=== PATIENT | male | born 1940 | race Caucasian/White ===

== ENCOUNTER → 2022-09-23 | Outpatient (CLI) | payer MEDICARE, BC ==
--- NOTE | 2022-09-23 12:56 | CT ---
EXAMINATION TYPE: CT abdomen pelvis wo con DATE OF EXAM: 09/23/2022 HISTORY: Abdominal pain, renal stones CT DLP: 985.90 mGycm. Automated Exposure Control for Dose Reduction was Utilized. TECHNIQUE: CT scan of the abdomen and pelvis is performed without oral or IV contrast. COMPARISON: NONE FINDINGS: Within the limitations of a non-contrast study, the following observations are made. LUNG BASES: No significant abnormality is appreciated. LIVER/GB: Dependent density consistent with sludge and/or small stones in gallbladder. No surrounding fluid or fat stranding PANCREAS: Mild to moderate atrophy in the pancreatic head. SPLEEN: No significant abnormality is seen. ADRENALS: No significant abnormality is seen. KIDNEYS: There is left-sided percutaneous nephrostomy. This terminates in the region of lower pole ca lyx. Persistent fgeljyyk-dl-nlmqko left-sided hydronephrosis and hydroureter up to the pelvic level. No left-sided nephrolithiasis. Right kidney shows exophytic 3.4 cm thin-walled cyst upper pole level right kidney. There is moderate right-sided hydronephrosis and more mild to moderate right-sided hydr oureter less prominent than left kidney up to the level of the pelvis. No intraluminal calculus in th e bladder. No significant distal hydroureter near the bladder. BOWEL: Surgical sutures in the rectum are present. There is marked abnormal soft tissue in the ancelmo cral space with additional air fluid level axial image 147 near the the site of the sutures. Divertic ulosis in the sigmoid colon proximal to this is identified. Surgical sutures in the proximal sigmoid colon axial image 123 are noted. 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 There is no suspicious small or large bowel dilatation. GENITAL ORGANS: No gross abnormality seen. LYMPH NODES: No greater than 1cm abdominal or pelvic lymph nodes are appreciated. OSSEOUS STRUCTURES: Grade 1 retrolisthesis L5-L3 and L3 on L4. Moderate disc space narrowing right L3 -L4 level. Surgical change to left femur is partially imaged. Slight scoliotic curvature with multile isaias spurring in the thoracolumbar spine. OTHER: Ccpe-ud-yeiudujj calcified plaque of the aorta extends into branch vessels. Mild soft tissue a nasarca. IMPRESSION: No renal stones identified bilaterally. Mild to moderate right-sided hydronephrosis and m mxduyre-if-rumpyf left-sided hydronephrosis are identified. There is left-sided percutaneous nephrost douglas tube noted. Please assess for adequate functioning. There is nonvisualization of distal ureters d ue to extensive treatment change in the pelvis particularly the presacral region where there is ill-d efined soft tissue and fluid near the site of the sutures in the rectum presumed occluding the distal ureters bilaterally. 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 Active neoplasm cannot be exclu ded without prior comparisons. Presence of air-fluid levels in thin walled fluid collections at this level could reflect posttreatment seromas but other etiologies such as small abscess cannot be exclud ed. Correlate clinically.
== END | disposition home or self-care (01) ==
LOC: RADCTMAIN 12:01
PROVIDERS: ATTEND Surgery
DX: N13.2 Hydronephrosis with renal and ureteral calculous obstruction (principal)
CPT/HCPCS: 74176

== ENCOUNTER 2022-10-17 11:41 | Inpatient (IN) | payer MEDICARE, BC ==
[2022-10-17] MEDS ORDERED: SODIUM CHLORIDE 0.9% 1,000 ML IV ONE ×2 (11:59→13:10)
[2022-10-17] MEDS ORDERED: SODIUM CHLORIDE 0.9% 500 ML 500 ML IV STA (12:00)
[2022-10-17] MEDS ORDERED: SODIUM CHLORIDE 0.9% 1,000 ML IV STA (12:00)
--- NOTE | 2022-10-17 12:16 | ED ---
General Adult HPI - General Chief complaint: Recheck/Abnormal Lab/Rx Stated complaint: Abd Pain Time Seen by Provider: 10/17/22 11:59 Source: patient, EMS, RN notes reviewed, old records reviewed Mode of arrival: EMS Limitations: altered mental status - History of Present Illness Initial comments: 81-year-old male presenting for evaluation of decreased urine output and abdominal pain. History is somewhat limited. Patient has had, acute medical history in the recent months including percutaneous nephrostomy tube ileostomy and multiple outside hospital admissions. History is obtained from the patient, paramedics, and the son who does have a limited understanding of his recent medical history. No reported fever. There is been very poor intake and minimal urine output from the percutaneous nephrostomy tube on the left. - Related Data Allergies Allergy/AdvReac Type Severity Reaction Status Date / Time No Known Allergies Allergy Verified 10/17/22 12:01 Review of Systems ROS Statement: Those systems with pertinent positive or pertinent negative responses have been documented in the HPI. ROS Other: All systems not noted in ROS Statement are negative. Past Medical History Additional Past Medical History / Comment(s): Heart murmur History of Any Multi-Drug Resistant Organisms: Unobtainable Past Surgical History: Unable to Obtain Past Psychological History: Unable to Obtain Smoking Status: Former smoker Past Alcohol Use History: Rare Past Drug Use History: Marijuana General Exam Limitations: no limitations General appearance: lethargic Head exam: Present: atraumatic, normocephalic Eye exam: Present: normal appearance, PERRL ENT exam: Present: mucous membranes dry Respiratory exam: Present: rhonchi. Absent: respiratory distress Cardiovascular Exam: Present: tachycardia, irregular rhythm GI/Abdominal exam: Present: soft, tenderness, other (Percutaneous left-sided nephrostomy tube, ileostomy). Absent: distended Extremities exam: Absent: normal capillary refill Neurological exam: Present: alert Skin exam: Present: pallor Course Vital Signs 10/17/22 10/17/22 11:42 13:33 Temperature 98.1 F Pulse Rate 104 H 113 H Respiratory 20 18 Rate Blood Pressure 73/51 91/43 O2 Sat by Pulse 96 97 Oximetry Procedures - Sepsis Sepsis Focused Exam #1 Sepsis Focused Exam Date: 10/17/22 Sepsis Focused Exam Time: 14:38 Sepsis Focused Exam Complete: Yes Vital Signs & RN Notes Reviewed: Yes Capillary Refill: < 2 Seconds: Fingers Peripheral Pulses: Weak: Radial (R), Radial (L) Skin Color: Pallor Respiratory Exam: normal lung sounds Cardiovascular Exam: tachycardia, irregular rhythm Medical Decision Making - Medical Decision Making Was pt. sent in by a medical professional or institution (NANO Avila, SLOTS MANAGER, urgent care, hospital, or intermediate...) When possible be specific @ -No Did you speak to anyone other than the patient for history (EMS, parent, family, police, friend...)? What history was obtained from this source @ -Paramedics, and the patient's son Did you review nursing and triage notes (agree or disagree)? Why? @ -I reviewed and agree with nursing and triage notes Were old charts reviewed (outside hosp., previous admission, EMS record, old EKG, old radiological studies, urgent care reports/EKG's, intermediate records)? Report findings @ -No old charts were reviewed Differential Diagnosis (chest pain, altered mental status, abdominal pain women, abdominal pain men, vaginal bleeding, weakness, fever, dyspnea, syncope, headache, dizziness, GI bleed, back pain, seizure, CVA, palpatations, mental health, musculoskeletal)? @ Differential Weakness: Hypoglycemia, shock, sepsis, hyponatremia, anemia, infection, NH, ETOH, adverse medicine reaction, overdose, stroke, this is not meant to be an all-inclusive list. EKG interpreted by me (3pts min.). @ -[Atrial fibrillation with RVR rate of 129, QRS duration 103, QTC 381 frequent PVC X-rays interpreted by me (1pt min.). @ -None done CT interpreted by me (1pt min.). @ -None done U/S interpreted by me (1pt. min.). @ -None done What testing was considered but not performed or refused? (CT, X-rays, U/S, labs )? Why? @ -None What meds were considered but not given or refused? Why? @ -None Did you discuss the management of the patient with other professionals (professionals i.e. NANO Avila, SLOTS MANAGER, lab, RT, psych nurse, director social service, roving can tender, teacher, ecological technical officer, ed case manager)? Give summary @ -Dr. Cevallos, Dr. Cohen Was smoking cessation discussed for >3mins.? @ -No Was critical care preformed (if so, how long)? @ -[yes , 35 min Were there social determinants of health that impacted care today? How? (Homelessness, low income, unemployed, alcoholism, drug addiction, transportation, low edu. Level, literacy, decrease access to med. care, senior living, rehab)? @ -No Was there de-escalation of care discussed even if they declined (Discuss DNR or withdrawal of care, Hospice)? DNR status @ -[DO NOT RESUSCITATE What co-morbidities impacted this encounter? (DM, HTN, Smoking, COPD, CAD, Cancer, CVA, ARF, Chemo, Hep., AIDS, mental health diagnosis, sleep apnea, morbid obesity)? @ -None Was patient admitted / discharged? Hospital course, mention meds given and route, prescriptions, significant lab abnormalities, going to OR and other pertinent info. @ -[81-year-old male presenting for evaluation of decreased urine output, poor intake and abdominal pain. Patient is pale, hypotensive upon arrival. He is in A. fib with RVR. Initial blood pressures in the 60s. He has a left-sided percutaneous nephrostomy tube without urine. He has some minimal generalized abdominal tenderness. Workup is initiated. Patient has significant lab abnormalities including leukocytosis, elevated BUN/creatinine without baseline for comparison. He has a lactic acid of 4.4. His magnesium is severely low at 0.7. His albumin is 2.3. Patient is a DO NOT RESUSCITATE. He will benefit from admission for IV hydration, treatment of presumed sepsis from urinary source. Undiagnosed new problem with uncertain prognosis? @ -No Drug Therapy requiring intensive monitoring for toxicity (Heparin, Nitro, Insulin, Cardizem)? @ -No Were any procedures done? @ -No Diagnosis/symptom? @ -[Sepsis, acute kidney injury, lactic acidosis Acute, or Chronic, or Acute on Chronic? @ -[Acute Uncomplicated (without systemic symptoms) or Complicated (systemic symptoms)? @ -[Complicated Side effects of treatment? @ -No Exacerbation, Progression, or Severe Exacerbation? @ -No Poses a threat to life or bodily function? How? (Chest pain, USA, NH, pneumonia, PE, COPD, DKA, ARF, appy, cholecystitis, CVA, Diverticulitis, Homicidal, Suicidal, threat to staff... and all critical care pts) @ -[Yes, sepsis, shock - Lab Data Result diagrams: 10/17/22 12:02 10/17/22 12:02 Lab Results 10/17/22 10/17/22 10/17/22 Range/Units 11:48 12:02 12:02 WBC 25.4 H (3.8-10.6) k/uL RBC 4.11 L (4.30-5.90) m/uL Hgb 11.6 L (13.0-17.5) gm/dL Hct 38.0 L (39.0-53.0) % MCV 92.4 (80.0-100.0) fL MCH 28.3 (25.0-35.0) pg MCHC 30.6 L (31.0-37.0) g/dL RDW 16.0 H (11.5-15.5) % Plt Count 366 (150-450) k/uL MPV 8.1 Neutrophils % 94 % Lymphocytes % 4 % Monocytes % 2 % Eosinophils % 0 % Basophils % 0 % Neutrophils # 23.7 H (1.3-7.7) k/uL Lymphocytes # 1.0 (1.0-4.8) k/uL Monocytes # 0.5 (0-1.0) k/uL Eosinophils # 0.0 (0-0.7) k/uL Basophils # 0.0 (0-0.2) k/uL Hypochromasia Marked Anisocytosis Slight PT 12.9 H (9.0-12.0) sec INR 1.3 H (<1.2) APTT 29.1 (22.0-30.0) sec Sodium (137-145) mmol/L Potassium (3.5-5.1) mmol/L Chloride (98-107) mmol/L Carbon Dioxide (22-30) mmol/L Anion Gap mmol/L BUN (9-20) mg/dL Creatinine (0.66-1.25) mg/dL Est GFR (CKD-EPI)AfAm (>60 ml/min/1.73 sqM) Est GFR (CKD-EPI)NonAf (>60 ml/min/1.73 sqM) Glucose (74-99) mg/dL Plasma Lactic Acid Erick (0.7-2.0) mmol/L Calcium (8.4-10.2) mg/dL Magnesium (1.6-2.3) mg/dL Total Bilirubin (0.2-1.3) mg/dL AST (17-59) U/L ALT (4-49) U/L Alkaline Phosphatase (38-126) U/L Total Protein (6.3-8.2) g/dL Albumin (3.5-5.0) g/dL Blood Type A Positive Blood Type Confirm Blood Type Recheck No Previous Record Bld Type Recheck Status CABO Indicated Antibody Screen NEGATIVE Spec Expiration Date 10/20/2022 - 234710/17/22 10/17/22 10/17/22 Range/Units 12:02 12:02 12:31 WBC (3.8-10.6) k/uL RBC (4.30-5.90) m/uL Hgb (13.0-17.5) gm/dL Hct (39.0-53.0) % MCV (80.0-100.0) fL MCH (25.0-35.0) pg MCHC (31.0-37.0) g/dL RDW (11.5-15.5) % Plt Count (150-450) k/uL MPV Neutrophils % % Lymphocytes % % Monocytes % % Eosinophils % % Basophils % % Neutrophils # (1.3-7.7) k/uL Lymphocytes # (1.0-4.8) k/uL Monocytes # (0-1.0) k/uL Eosinophils # (0-0.7) k/uL Basophils # (0-0.2) k/uL Hypochromasia Anisocytosis PT (9.0-12.0) sec INR (<1.2) APTT (22.0-30.0) sec Sodium 134 L (137-145) mmol/L Potassium 4.8 (3.5-5.1) mmol/L Chloride 103 (98-107) mmol/L Carbon Dioxide 18 L (22-30) mmol/L Anion Gap 13 mmol/L BUN 45 H (9-20) mg/dL Creatinine 2.84 H (0.66-1.25) mg/dL Est GFR (CKD-EPI)AfAm 23 (>60 ml/min/1.73 sqM) Est GFR (CKD-EPI)NonAf 20 (>60 ml/min/1.73 sqM) Glucose 142 H (74-99) mg/dL Plasma Lactic Acid Erick 4.4 H* (0.7-2.0) mmol/L Calcium 7.5 L (8.4-10.2) mg/dL Magnesium 0.7 L* (1.6-2.3) mg/dL Total Bilirubin 0.7 (0.2-1.3) mg/dL AST 17 (17-59) U/L ALT 19 (4-49) U/L Alkaline Phosphatase 110 (38-126) U/L Total Protein 4.8 L (6.3-8.2) g/dL Albumin 2.3 L (3.5-5.0) g/dL Blood Type Blood Type Confirm A Positive Blood Type Recheck Bld Type Recheck Status Antibody Screen Spec Expiration Date Critical Care Time Critical Care Time: Yes Total Critical Care Time: 35 Disposition Clinical Impression: Sepsis, Acute kidney injury Disposition: ADMITTED IP TO THIS [facility] Condition: Serious Is patient prescribed a controlled substance at d/c from ED?: No Referrals: Ranjit Aparicio MD [Primary Care Provider] - 1-2 days Time of Disposition: 14:39
[2022-10-17 12:35] LABS: ALT 19 U/L (4-49); AST 17 U/L (17-59); African American GFR (CKD) 23 (>60 ml/min/1.73 sqM); Albumin 2.3 g/dL (3.5-5.0); Alkaline Phosphatase 110 U/L (38-126); Anion Gap 13 mmol/L; Blood Urea Nitrogen 45 mg/dL (9-20); Calcium 7.5 mg/dL (8.4-10.2); Carbon Dioxide 18 mmol/L (22-30); Chloride 103 mmol/L (98-107); Glucose 142 mg/dL (74-99); Non-African American GFR(CKD) 20 (>60 ml/min/1.73 sqM); Potassium 4.8 mmol/L (3.5-5.1); Sodium 134 mmol/L (137-145); Total Bilirubin 0.7 mg/dL (0.2-1.3); Total Protein 4.8 g/dL (6.3-8.2)
[2022-10-17 12:42] LABS: Anisocytosis Slight; Basophils % (A) 0 %; Eosinophils % (A) 0 %; HGB 11.6 gm/dL (13.0-17.5); Hypochromasia Marked; Lymphocytes % (A) 4 %; MCH 28.3 pg (25.0-35.0); MCHC 30.6 g/dL (31.0-37.0); MCV 92.4 fL (80.0-100.0); Mean Platelet Volume 8.1; Monocytes # (A) 0.5 k/uL (0-1.0); Monocytes % (A) 2 %; Neutrophils # (A) 23.7 k/uL (1.3-7.7); Neutrophils % (A) 94 %; Platelet Count 366 k/uL (150-450); RBC 4.11 m/uL (4.30-5.90); WBC 25.4 k/uL (3.8-10.6)
--- NOTE | 2022-10-17 12:43 | CT ---
EXAMINATION TYPE: CT abdomen pelvis wo con DATE OF EXAM: 10/17/2022 COMPARISON: 09/23/2022 HISTORY: Decreased urine output in nephrostomy tube. CT DLP: 982.3 mGycm Examination of the solid and hollow viscera is limited given the lack of contrast. FINDINGS: LUNG BASES: No evidence for nodule. No evidence for infiltrate. LIVER/GB: Tiny layering gallstones are present. No space-occupying hepatic lesion. PANCREAS: No pancreatic mass identified. No inflammatory process seen. SPLEEN: No evidence for splenomegaly. No intrasplenic lesions seen. ADRENALS: No adrenal nodules identified. No evidence for thickening. KIDNEYS: Left kidney: Moderate to severe left-sided hydronephrosis has improved significantly since prior exam ination with only mild fullness noted currently. Left-sided percutaneous nephrostomy tube is noted to be in place. Small focus of air within the left renal pelvis. Mild perinephric stranding unchanged f rom prior study. Exophytic cyst lower pole left kidney is stable. No evidence for nephrolithiasis. Right kidney: Mild to moderate right-sided hydroureteronephrosis persists and is essentially unchange d relative to the prior study. No evidence for nephrolithiasis or right renal mass The urinary bladder continues to demonstrate wall thickening. BOWEL: Low anterior abdominal wall midline ostomy noted with parastomal hernia which contains a segme nt of small bowel unchanged. Sacral soft tissue mass persists and is essentially unchanged relative t o the prior study. While the findings may be related to posttreatment change recurrent or residual ne oplasm is not excluded. Small focal fluid collections remain stable reflect posttreatment/post surgic al seromas however small abscess is not excluded. Lymph nodes: No evidence for adenopathy greater than 1 cm. Abdominal aorta: Atheromatous changes seen. No evidence for aneurysm. Genital organs: No significant abnormality. Other: No significant abnormality. IMPRESSION: 1.Moderate to severe left-sided hydronephrosis has improved significantly since prior examination wit h only mild fullness noted currently. Left-sided percutaneous nephrostomy tube is noted to be in plac e. Small focus of air within the left renal pelvis. 2. Stable xsxk-jl-nuzigyyr right-sided hydroureteronephrosis. 3. 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 See above discussion.
--- NOTE | 2022-10-17 12:44 | XR ---
EXAMINATION TYPE: XR chest 1V portable DATE OF EXAM: 10/17/2022 HISTORY: Shortness of breath. COMPARISON: None. TECHNIQUE: Single view of the chest is submitted. FINDINGS: Demonstrated are scattered senescent parenchymal change. There is no evidence for focal infiltrate. The heart is stable. Hilar and mediastinal structures are within normal limits. Degenerative changes are seen of the dorsal spine. IMPRESSION: 1. Chronic changes without evidence for acute pulmonary disease.
[2022-10-17 12:45] LABS: INR 1.3 (<1.2); Partial Thromboplastin Time 29.1 sec (22.0-30.0); Prothrombin Time 12.9 sec (9.0-12.0)
[2022-10-17 13:05] LABS: Magnesium 0.7 mg/dL (1.6-2.3)
[2022-10-17] MEDS ORDERED: MAGNESIUM SULFATE-D5W PMX 1 GM in DEXTROSE/WATER 1 100ML.BAG IVPB ONE (13:06)
[2022-10-17] MEDS ORDERED: NALOXONE 0.4 MG/ML 1 ML VIAL IV PRN (14:32)
[2022-10-17 17:42] LABS: Glucose,Whole Blood 136 mg/dL (70-110)
[2022-10-17 20:02] LABS: Glucose,Whole Blood 135 mg/dL (70-110)
[2022-10-18] MEDS: ACETAMINOPHEN TAB 325 MG TAB PO PRN ×2 (01:58→10:22)
--- NOTE | 2022-10-18 06:00 | P.CNPUL ---
History of Present Illness Consult date: 10/18/22 Requesting physician: Bello Henning Reason for consult: other (Sepsis) Chief complaint: Abdominal pain and reduced nephrostomy output History of present illness: I am seeing this patient in new consultation today 10/18/2022 on the cardiac stepdown floor for possible UTI. Patient is an 81-year-old male who is debilitated, and currently lives with his son. Patient is a poor historian, t his HPI is supplemented with the chart and information provided from his son. Patient apparently has a history of recent kidney stone and sepsis resulting in left nephrostomy tube back in February 2022 at [facility]. Patient reportedly went to rehab after this, and has never fully recovered. The patient later had a heart attack and was on the mechanical ventilator for about 10 days. During this admission at [facility], he reportedly had 2 episodes of cardiac arrest. He reportedly had acute kidney injury and had temporary hemodialysis as well. He also has a remote history of colon cancer status post colectomy and ileostomy, slurred speech after his last cardiac arrest, and is an ex-smoker. No reported lung history, and he does not follow with right of way buyer. Patient's son says that he is mostly bedbound at home. He has been experiencing reduced appetite, nausea and vomiting, left-sided abdominal pain, reduced nephrostomy tube output, and penile discharge that started approximately 24 hours ago. This prompted the patient to come to the emergency room yesterday afternoon. 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 Patient is currently resting in bed, on room air, in no acute distress. He denies any dysuria, frequency, hematuria. He still voids, and is incontinent of urine. No urine output seen in the nephrostomy pouch. There appears to be a small amount of purulent fluid. He does report left-sided abdominal and flank pain. No significant CVA tenderness. There is a functional ileostomy with brown output. Denies bloody bowel movements. Chest x-ray on arrival showed no active cardiopulmonary disease. CBC on arrival shows some leukocytosis with a WBC count of 25.4, hemoglobin 11.6, hematocrit 38, platelets 366. BMP shows sodium 134, potassium 4.8, chloride 103, serum CO2 18, BUN 45, creatinine 2.84, glucose 142. Lactic acid level wasn't elevated at 4.6 and is down to 2.6. Patient has received a total of 2.5 L normal saline bolus. Has received 2 doses of Rocephin. Is currently afebrile. Vital signs are stable. Review of Systems REVIEW OF SYSTEMS: CONSTITUTIONAL: Denies any recent significant weight loss or weight gain. EYES: Denies change in vision. EARS, NOSE, MOUTH, THROAT: Denies headaches, denies sore throat. CARDIOVASCULAR: Denies chest pain, palpitations or syncopal episodes. RESPIRATORY: Denies shortness of breath, cough, congestion or hemoptysis. GASTROINTESTINAL: See HPI GENITOURINARY: See HPI MUSKULOSKELETAL: admits lower extremity swelling, and there is left-sided foot drop INTEGUMENTARY: Denies rash, denies eczema. NEUROLOGICAL: Denies recent memory loss, no recent seizure activity. PSYCHIATRIC: Denies anxiety, denies depression. HEMATOLOGIC/LYMPHATIC: Denies anemia, denies enlarged lymph node Past Medical History Additional Past Medical History / Comment(s): Heart murmur History of Any Multi-Drug Resistant Organisms: Unobtainable Past Surgical History: Unable to Obtain Past Psychological History: Unable to Obtain Smoking Status: Former smoker Past Alcohol Use History: Rare Past Drug Use History: Marijuana Medications and Allergies Home Medications Medication Instructions Recorded Confirmed Type Atorvastatin [Lipitor] 20 mg PO DAILY 10/17/22 10/17/22 History Cyanocobalamin (Vitamin B-12) 1,000 mcg PO DAILY 10/17/22 10/17/22 History [Vitamin B-12] Ferrous Sulfate [Feosol] 325 mg PO DAILY 10/17/22 10/17/22 History Furosemide [Lasix] 20 mg PO DAILY 10/17/22 10/17/22 History L.acidoph,Paracasei, B.lactis 1 cap PO DAILY 10/17/22 10/17/22 History [Probiotic] Nitrofurantoin Monohyd/M-Cryst 100 mg PO Q12HR 10/17/22 10/17/22 History [Macrobid] Omeprazole [PriLOSEC] 20 mg PO DAILY 10/17/22 10/17/22 History Vit B Comp No.3/Folic/C/Biotin 1 tab PO DAILY 10/17/22 10/17/22 History [Melody-Katerina Rx Tablet] allopurinoL [Zyloprim] 100 mg PO DAILY 10/17/22 10/17/22 History lisinopriL [Zestril] 5 mg PO DAILY 10/17/22 10/17/22 History Allergies Allergy/AdvReac Type Severity Reaction Status Date / Time No Known Allergies Allergy Verified 10/17/22 15:51 Physical Exam Vitals: Vital Signs Temp Pulse Pulse Resp BP BP Pulse Ox 10/18/22 00:00 97.8 F 108 H 16 88/58 96 10/17/22 20:00 97.8 F 105 H 16 90/55 95 10/17/22 17:30 97.7 F 113 H 18 75/45 98 10/17/22 16:33 109 H 18 94/49 97 10/17/22 14:34 112 H 18 101/47 96 10/17/22 13:33 113 H 18 91/43 97 10/17/22 11:42 98.1 F 104 H 20 73/51 96 Intake and Output 10/17/22 10/17/22 10/18/22 14:59 22:59 06:59 Intake Total 3370 1340 Balance 3370 1340 Intake: Intake, IV Titration 2830 800 Amount Magnesium Sulfate-D5w Pmx 100 1 gm In Dextrose/Water 1 100ml.bag @ 100 mls/hr IVPB ONCE ONE Rx#: [id number] Sodium Chloride 0.9% 1, 130 800 000 ml @ 130 mls/hr IV . Q7H42M STA Rx#:[id number] Sodium Chloride 0.9% 1, 1000 000 ml @ 999 mls/hr IV . Q1H1M ONE Rx#:[id number] Sodium Chloride 0.9% 1, 1000 000 ml @ 999 mls/hr IV . Q1H1M ONE Rx#:[id number] Sodium Chloride 0.9% 500 500 ml 500 ml @ 999 mls/hr IV .Q31M STA Rx#:[id number] cefTRIAXone 2 gm In 50 Sodium Chloride 0.9% 50 ml @ 100 mls/hr IVPB ONCE STA Rx#:[id number] cefTRIAXone 2 gm In 50 Sodium Chloride 0.9% 50 ml @ 100 mls/hr IVPB ONCE STA Rx#:[id number] Oral 540 540 Other: Voiding Method Diaper Diaper Incontinent Incontinent Weight 104.326 kg GENERAL EXAM: Alert, 81-year-old male, comfortable in no apparent distress. HEAD: Normocephalic and atraumatic EYES: Normal reaction of pupils, equal size. NOSE: Clear with pink turbinates. THROAT: No erythema or exudates. NECK: No masses, no JVD. CHEST: No chest wall deformity. LUNGS: Equal air entry with no crackles, wheeze, rhonchi or dullness. On room air. No conversational dyspnea or accessory muscle use.. CVS: S1 and S2 normal with no audible murmur, regular rhythm. No extra heart sounds ABDOMEN: No hepatosplenomegaly, active bowel sounds, no guarding or rigidity. Left-sided nephrostomy tube without urine and small amount of purulent drainage. No significant CVA tenderness. There is a functional ileostomy with brown output SPINE: No scoliosis or deformity SKIN: No rashes CENTRAL NERVOUS SYSTEM: No focal deficits, tone is normal in all 4 extremities. Dysarthria and slurred speech EXTREMITIES: There is bilateral lower extremity 2+ edema. No clubbing, or cyanosis. Peripheral pulses are intact. Left foot drop Results - Laboratory Findings CBC and BMP: 10/17/22 12:10/17/22 12:02 PT/INR, D-dimer PT 12.9 sec (9.0-12.0) H 10/17/22 12:02 INR 1.3 (<1.2) H 10/17/22 12:02 Abnormal lab findings: Abnormal Labs 10/17/22 10/17/22 10/17/22 12:02 12:02 12:02 WBC 25.4 H RBC 4.11 L Hgb 11.6 L Hct 38.0 L MCHC 30.6 L RDW 16.0 H Neutrophils # 23.7 H PT 12.9 H INR 1.3 H Sodium 134 L Carbon Dioxide 18 L BUN 45 H Creatinine 2.84 H Glucose 142 H POC Glucose (mg/dL) Plasma Lactic Acid Erick Calcium 7.5 L Magnesium 0.7 L* Total Protein 4.8 L Albumin 2.3 L 10/17/22 10/17/2223 12:02 15:25 17:41 WBC RBC Hgb Hct MCHC RDW Neutrophils # PT INR Sodium Carbon Dioxide BUN Creatinine Glucose POC Glucose (mg/dL) 136 H Plasma Lactic Acid Erick 4.4 H* 4.6 H* Calcium Magnesium Total Protein Albumin 10/17/22 10/17/22 10/17/22 19:29 20:01 22:46 WBC RBC Hgb Hct MCHC RDW Neutrophils # PT INR Sodium Carbon Dioxide BUN Creatinine Glucose POC Glucose (mg/dL) 135 H Plasma Lactic Acid Erick 4.1 H* 3.3 H* Calcium Magnesium Total Protein Albumin 10/18/22 01:18 WBC RBC Hgb Hct MCHC RDW Neutrophils # PT INR Sodium Carbon Dioxide BUN Creatinine Glucose POC Glucose (mg/dL) Plasma Lactic Acid Erick 2.6 H* Calcium Magnesium Total Protein Albumin - Diagnostic Findings Chest x-ray: image reviewed Assessment and Plan Assessment: Possible UTI, however, no urinalysis or urine cultures have been collected. Patient's left nephrostomy has been nonfunctional for the last [address] of the abdomen pelvis actually shows improvement of the patient's previous moderate to severe left-sided hydronephrosis from prior exam. There is a small focus of air within the renal pelvis. There is stable mild to moderate right-sided hydroureter nephrosis. Leukocytosis History of kidney stone and urosepsis resulting in left nephrostomy Elevated creatinine, unknown whether acute or chronic kidney disease Lactic acidosis, improving History of colon cancer status post colectomy and ileostomy. 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 History of cardiac arrest, resulting in prolonged mechanical ventilation Ex-smoker Plan: Patient's medication, labs, chest x-ray, CT of the abdomen and pelvis were reviewed Patient has no reported lung history He is on room air, and in no acute distress Start empiric Rocephin Start normal saline at 75 mL per hour Consult urology Obtain urinalysis and reflex to culture Obtain blood cultures Patient appears nontoxic and stable at this time The patient has no pulmonary complaints I have personally seen and examined the patient, performed the documentation and the assessment and plan as written. Number of minutes spent on the visit:20 Time with Patient: Greater than 30
[2022-10-18 06:10] LABS: Glucose,Whole Blood 128 mg/dL (70-110)
[2022-10-18] MEDS: SODIUM CHLORIDE 0.9% 1,000 ML IV SCH ×3 (06:38→21:00)
[2022-10-18] MEDS: MAGNESIUM SULFATE-D5W PMX 1 GM in DEXTROSE/WATER 1 100ML.BAG IVPB SCH ×4 (10:16→13:26)
--- NOTE | 2022-10-18 11:26 | P.NPCON ---
History of Present Illness - Reason for Consult acute renal failure - History of Present Illness Patient is an 81-year-old male who was admitted to the hospital with complaints of abdominal pain decreased appetite and nausea and vomiting. History is obtained from chart review. Patient is not able to provide any history. Patient also has a history of nephrolithiasis status post left nephrostomy and bilateral hydronephrosis. Nephrostomy tube was placed in February 2022 per patient's history. Current CAT scan shows improvement in left hydronephrosis but right-sided hydronephrosis persists. Patient has not had much urine output since admission. Bladder scan showed 161 mL of urine yesterday. Patient has a past presacral mass, details not available. Positive History of colon cancer with previous colectomy and ileostomy. Serum creatinine at 2.8 with elevated lactic acid at 4.4. Magnesium was 0.7 on admission. No previous labs available for comparison. Patient is maintained on IV fluids. He he has had magnesium supplementation. Review of Systems Hbi Past Medical History Additional Past Medical History / Comment(s): Heart murmur History of Any Multi-Drug Resistant Organisms: Unobtainable Past Surgical History: Unable to Obtain Past Psychological History: Unable to Obtain Smoking Status: Former smoker Past Alcohol Use History: Rare Past Drug Use History: Marijuana Medications and Allergies Home Medications Medication Instructions Recorded Confirmed Type Atorvastatin [Lipitor] 20 mg PO DAILY 10/17/22 10/17/22 History Cyanocobalamin (Vitamin B-12) 1,000 mcg PO DAILY 10/17/22 10/17/22 History [Vitamin B-12] Ferrous Sulfate [Feosol] 325 mg PO DAILY 10/17/22 10/17/22 History Furosemide [Lasix] 20 mg PO DAILY 10/17/22 10/17/22 History L.acidoph,Paracasei, B.lactis 1 cap PO DAILY 10/17/22 10/17/22 History [Probiotic] Nitrofurantoin Monohyd/M-Cryst 100 mg PO Q12HR 10/17/22 10/17/22 History [Macrobid] Omeprazole [PriLOSEC] 20 mg PO DAILY 10/17/22 10/17/22 History Vit B Comp No.3/Folic/C/Biotin 1 tab PO DAILY 10/17/22 10/17/22 History [Melody-Katerina Rx Tablet] allopurinoL [Zyloprim] 100 mg PO DAILY 10/17/22 10/17/22 History lisinopriL [Zestril] 5 mg PO DAILY 10/17/22 10/17/22 History Allergies Allergy/AdvReac Type Severity Reaction Status Date / Time No Known Allergies Allergy Verified 10/17/22 15:51 Physical Exam Vitals: Vital Signs Temp Pulse Pulse Resp BP BP BP 10/18/22 08:40 10/18/22 08:00 97.4 F L 112 H 20 74/53 10/18/22 04:00 97.5 F L 108 H 16 94/59 10/18/22 00:00 97.8 F 108 H 16 88/58 10/17/22 20:00 97.8 F 105 H 16 90/55 10/17/22 17:30 97.7 F 113 H 18 75/45 10/17/22 16:33 109 H 18 94/49 10/17/22 14:34 112 H 18 101/47 10/17/22 13:33 113 H 18 91/43 10/17/22 11:42 98.1 F 104 H 20 73/51 Pulse Ox 10/18/22 08:40 94 L 10/18/22 08:00 95 10/18/22 04:00 95 10/18/22 00:00 96 10/17/22 20:00 95 10/17/22 17:30 98 10/17/22 16:33 97 10/17/22 14:34 96 10/17/22 13:33 97 10/17/22 11:42 96 Intake and Output 10/17/22 10/18/22 10/18/22 22:59 06:59 14:59 Intake Total 3370 1340 Balance 3370 1340 Intake: Intake, IV Titration 2830 800 Amount Magnesium Sulfate-D5w Pmx 100 1 gm In Dextrose/Water 1 100ml.bag @ 100 mls/hr IVPB ONCE ONE Rx#: [id number] Sodium Chloride 0.9% 1, 130 800 000 ml @ 130 mls/hr IV . Q7H42M STA Rx#:[id number] Sodium Chloride 0.9% 1, 1000 000 ml @ 999 mls/hr IV . Q1H1M ONE Rx#:[id number] Sodium Chloride 0.9% 1, 1000 000 ml @ 999 mls/hr IV . Q1H1M ONE Rx#:[id number] Sodium Chloride 0.9% 500 500 ml 500 ml @ 999 mls/hr IV .Q31M STA Rx#:[id number] cefTRIAXone 2 gm In 50 Sodium Chloride 0.9% 50 ml @ 100 mls/hr IVPB ONCE STA Rx#:[id number] cefTRIAXone 2 gm In 50 Sodium Chloride 0.9% 50 ml @ 100 mls/hr IVPB ONCE STA Rx#:[id number] Oral 540 540 Other: Voiding Method Diaper Diaper Diaper Incontinent Incontinent Incontinent Patient is awake, comfortable, no acute distress He is confused Examination of the heart S1 and S2 Examination lungs decreased breath sounds at the bases Abdomen is soft nontender Examination lower extremities shows edema 1+ bilaterally 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 Results - Lab Results Most recent lab results Calcium 7.5 mg/dL (8.4-10.2) L 10/17/22 12:02 Magnesium 0.8 mg/dL (1.6-2.3) L* 10/18/22 04:50 10/17/22 12:02 10/17/22 12:02 Assessment and Plan Assessment: 1. Acute kidney injury with no previous labs available for comparison. Most likely ATN with underlying hypotension as well as component of Obstructive uropathy and bilateral hydronephrosis with improvement in hydronephrosis on the left side however patient has not had any output from his left nephrostomy tube. Right hydronephrosis persists. Only 160 mL of urine was noted in the bladder yesterday. No urine output documented thus far. Urology has been consulted 2. Lactic acidosis status post IV fluids, improved 3. History of acute kidney injury needing dialysis previously, details not known 4. Metabolic acidosis associated with lactic acidosis and acute kidney injury Plan: Repeat labs today as well as in a.m. Check urine analysis Continue with IV fluids Add midodrine as patient remains hypotensive Replace magnesium Await urology input Accurate I's and O's
[2022-10-18 12:19] LABS: Glucose,Whole Blood 154 mg/dL (70-110)
[2022-10-18 12:26] LABS: African American GFR (CKD) 22 (>60 ml/min/1.73 sqM); Anion Gap 12 mmol/L; Blood Urea Nitrogen 50 mg/dL (9-20); Calcium 6.9 mg/dL (8.4-10.2); Carbon Dioxide 14 mmol/L (22-30); Chloride 109 mmol/L (98-107); Glucose 133 mg/dL (74-99); Non-African American GFR(CKD) 19 (>60 ml/min/1.73 sqM); Potassium 4.3 mmol/L (3.5-5.1); Sodium 135 mmol/L (137-145)
[2022-10-18] MEDS: MAGNESIUM OXIDE 400 MG TAB PO SCH ×2 (12:46→20:59)
--- NOTE | 2022-10-18 14:52 | P.HPIM ---
History of Present Illness H&P Date: 10/17/22 Chief Complaint: Decreased urine output and abdominal pain 81-year-old patient who follows with visiting physicians Dr. diaz. Patient is a limited historian. As per the ER physician patient's[facility] Has a percutaneous nephrostomy tube. Also has a colostomy. Patient is not sure why he is in the ER. But he was apparently sent in for decreased urine output and some abdominal pain. Patient denies abdominal pain. Has decreased output. Denies any fever and chills. Has not walked for about 2 months. No nausea vomiting. Patient was hypotensive in the ER. Given IV fluids. IV ceftriaxone. Concern about sepsis. No fever recorded. Has a sac ral decubitus ulcer Review of systems: GEN.: Tired decreased appetite EYES: None HEENT: None NECK: None RESPIRATORY: None CARDIOVASCULAR: None GASTROINTESTINAL: Questionable abdominal pain. GENITOURINARY: Nephrostomy tube MUSCULOSKELETAL: Some joint pain LYMPHATICS: None HEMATOLOGICAL: None PSYCHIATRY: Forgetful NEUROLOGICAL: None Physical examination: VITAL SIGNS: 98.1, 104, 20, 73/51, 96% room air Reviewed. BMI noted GENERAL: BMI 32.1, declining but awake tired. EYES: Pupils equal. Conjunctiva normal. HEENT: External appearance of nose and ears normal, oral cavity grossly normal. NECK: JVD not raised; masses not palpable. HEART: First and second heart sounds are normal; no edema. LUNGS:[ Respiratory rate normal; decreased breath sounds. ABDOMEN: Soft, nontender, liver spleen not palpable, no masses palpable. Colostomy bag. Bilateral nephrostomy tube PSYCH: Patient didn't tell his name. Does not know why he is here. Cannot tell the yearl. MUSCULOSKELETAL:No Clubbing/cyanosis;muscles-grossly intact. OA NEUROLOGICAL: Cranial nerves grossly intact; no facial asymmetry, power and sensation grossly intact. LYMPHATICS: No lymph nodes palpable in the axilla and neck INVESTIGATIONS, reviewed in the clinical context: WBC 25.4 hemoglobin 11.6 platelets 366 sodium 134 potassium 4.8 BUN 45 creatinine 2.84 Lactic acid 4.4 Magnesium 0.7 albumin 2.3 EKG tracing personally reviewed by me-possible multifocal atrial tachycardia with PVC Chest x-ray film personally reviewed by me-unremarkable CT abdomen and pelvis without contrast: Moderate to severe left-sided hydr onephrosis improved to prior exam. Last status post continues nephrostomy tube is.. Right kidney: Mild to moderate right-sided height 2. Hydronephrosis. Unchanged. Assessment and plan: -Probable sepsis with leukocytosis, hypertension. Blood culture and UA was ordered from the ER. Was given first dose of ceftriaxone. -left nephrostomy tubes, with moderate to severe left-sided hydronephrosis. There is some improvement from prior study. -Significant cognitive impairment -Chronic medical debility, patient is nonambulatory -Hypotension possibly accommodation sepsis and poor oral intake Stop Zestril. Stop Lasix. IV fluids -Hyperlipidemia Lipitor -GERD PPI -Acute kidney injury with no prior labs available for comparison. Possibly ATN from hypotension. Element of obstructive uropathy. With bilateral hydronephrosis. Decreased urine output. Nephrology consulted -Lactic acidosis multifactorial -Metabolic acidosis probably from kidney disease -Sacral decub's wound. Wound care IV fluids. IV antibiotics. Consultation to nephrology. 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 Cultures have been ordered.. Currently no family at the bedside. Past Medical History Additional Past Medical History / Comment(s): Heart murmur History of Any Multi-Drug Resistant Organisms: Unobtainable Past Surgical History: Unable to Obtain Past Psychological History: Unable to Obtain Smoking Status: Former smoker Past Alcohol Use History: Rare Past Drug Use History: Marijuana Medications and Allergies Home Medications Medication Instructions Recorded Confirmed Type Atorvastatin [Lipitor] 20 mg PO DAILY 10/17/22 10/17/22 History Cyanocobalamin (Vitamin B-12) 1,000 mcg PO DAILY 10/17/22 10/17/22 History [Vitamin B-12] Ferrous Sulfate [Feosol] 325 mg PO DAILY 10/17/22 10/17/22 History Furosemide [Lasix] 20 mg PO DAILY 10/17/22 10/17/22 History L.acidoph,Paracasei, B.lactis 1 cap PO DAILY 10/17/22 10/17/22 History [Probiotic] Nitrofurantoin Monohyd/M-Cryst 100 mg PO Q12HR 10/17/22 10/17/22 History [Macrobid] Omeprazole [PriLOSEC] 20 mg PO DAILY 10/17/22 10/17/22 History Vit B Comp No.3/Folic/C/Biotin 1 tab PO DAILY 10/17/22 10/17/22 History [Melody-Katerina Rx Tablet] allopurinoL [Zyloprim] 100 mg PO DAILY 10/17/22 10/17/22 History lisinopriL [Zestril] 5 mg PO DAILY 10/17/22 10/17/22 History Allergies Allergy/AdvReac Type Severity Reaction Status Date / Time No Known Allergies Allergy Verified 10/17/22 15:51 Physical Exam Vitals: Vital Signs Temp Pulse Resp BP Pulse Ox 10/17/22 14:34 112 H 18 101/47 96 10/17/22 13:33 113 H 18 91/43 97 10/17/22 11:42 98.1 F 104 H 20 73/51 96 Intake and Output 10/17/22 10/17/22 10/17/22 06:59 14:59 22:59 Other: Weight 104.326 kg Results CBC & Chem 7: 10/17/22 12:02 10/18/22 04:50 Labs: Abnormal Lab Results - Last 24 Hours (Table) 10/17/22 10/17/22 10/17/22 Range/Units 12:02 12:02 12:02 WBC 25.4 H (3.8-10.6) k/uL RBC 4.11 L (4.30-5.90) m/uL Hgb 11.6 L (13.0-17.5) gm/dL Hct 38.0 L (39.0-53.0) % MCHC 30.6 L (31.0-37.0) g/dL RDW 16.0 H (11.5-15.5) % Neutrophils # 23.7 H (1.3-7.7) k/uL PT 12.9 H (9.0-12.0) sec INR 1.3 H (<1.2) Sodium 134 L (137-145) mmol/L Carbon Dioxide 18 L (22-30) mmol/L BUN 45 H (9-20) mg/dL Creatinine 2.84 H (0.66-1.25) mg/dL Glucose 142 H (74-99) mg/dL Plasma Lactic Acid Erick (0.7-2.0) mmol/L Calcium 7.5 L (8.4-10.2) mg/dL Magnesium 0.7 L* (1.6-2.3) mg/dL Total Protein 4.8 L (6.3-8.2) g/dL Albumin 2.3 L (3.5-5.0) g/dL 10/17/22 Range/Units 12:02 WBC (3.8-10.6) k/uL RBC (4.30-5.90) m/uL Hgb (13.0-17.5) gm/dL Hct (39.0-53.0) % MCHC (31.0-37.0) g/dL RDW (11.5-15.5) % Neutrophils # (1.3-7.7) k/uL PT (9.0-12.0) sec INR (<1.2) Sodium (137-145) mmol/L Carbon Dioxide (22-30) mmol/L BUN (9-20) mg/dL Creatinine (0.66-1.25) mg/dL Glucose (74-99) mg/dL Plasma Lactic Acid Erick 4.4 H* (0.7-2.0) mmol/L Calcium (8.4-10.2) mg/dL Magnesium (1.6-2.3) mg/dL Total Protein (6.3-8.2) g/dL Albumin (3.5-5.0) g/dL
[2022-10-18] MEDS: MEROPENEM 1 GM in SODIUM CHLORIDE 0.9% 100 ML IVPB SCH ×2 (15:01→21:44)
[2022-10-18] MEDS ORDERED: MEROPENEM 2 GM in SODIUM CHLORIDE 0.9% 100 ML IVPB SCH (16:00)
[2022-10-18 17:25] LABS: Glucose,Whole Blood 126 mg/dL (70-110)
--- NOTE | 2022-10-18 17:43 | P.GSCN ---
History of Present Illness Consult date: 10/18/22 Reason for Consult: Bilateral hydronephrosis History of present illness: This is an 81 yo male admitted to the hospital with abdominal pain and CLAUDINE. He is a poor historian. He has hx of bilateral hydronephrosis, he underwent left sided nephrostomy tube placement, patient is unsure when and when the PCN was changed last. Patient is unsure how he follows up with for his hydronephrosis, but CT back in 09/2022 appears to be ordered by Dr Roberto Moreno with [facility]. His had CT back in 09/2022 which showed evidence of bilateral hydronephrosis, repeat CT on this presentation showed significant improvement of hydronephrosis on left and stable hydronephrosis on the right. On CT the PCN is within the collecting system. He denies any flank pain, dysuria or gross hematuria. creat 2.9 on admission, his baseline in unknown urology is consulted for evaluation of his left PCN door to low output Review of Systems - Constitutional Denies fever, Denies weight loss - Cardiovascular Denies chest pain, Denies shortness of breath - Gastrointestinal Reports abdominal pain, Reports nausea, Reports vomiting - Integumentary Denies rash, Denies unusual bruising Past Medical History Past Medical History: Cancer, Diabetes Mellitus, Myocardial Infarction (ID), Renal Disease Additional Past Medical History / Comment(s): Heart murmur, colon ca with colostomy bag, kidney stone with nephrostomy tube, cardiac arrest x2 in 2021 with speech changes and decrease mobility Last Myocardial Infarction Date:: feb 2022 History of Any Multi-Drug Resistant Organisms: Unobtainable Past Surgical History: Unable to Obtain, Bowel Resection, Orthopedic Surgery Additional Past Surgical History / Comment(s): colostomy, nepro tube, left knee, cataract surgery Past Anesthesia/Blood Transfusion Reactions: No Reported Reaction Smoking Status: Never smoker - Past Family History Mother Family Medical History: Rheumatoid Arthritis (RA) Medications and Allergies Home Medications Medication Instructions Recorded Confirmed Type Atorvastatin [Lipitor] 20 mg PO DAILY 10/17/22 10/17/22 History Cyanocobalamin (Vitamin B-12) 1,000 mcg PO DAILY 10/17/22 10/17/22 History [Vitamin B-12] Ferrous Sulfate [Feosol] 325 mg PO DAILY 10/17/22 10/17/22 History Furosemide [Lasix] 20 mg PO DAILY 10/17/22 10/17/22 History L.acidoph,Paracasei, B.lactis 1 cap PO DAILY 10/17/22 10/17/22 History [Probiotic] Nitrofurantoin Monohyd/M-Cryst 100 mg PO Q12HR 10/17/22 10/17/22 History [Macrobid] Omeprazole [PriLOSEC] 20 mg PO DAILY 10/17/22 10/17/22 History Vit B Comp No.3/Folic/C/Biotin 1 tab PO DAILY 10/17/22 10/17/22 History [Melody-[facility] Rx Tablet] allopurinoL [Zyloprim] 100 mg PO DAILY 10/17/22 10/17/22 History lisinopriL [Zestril] 5 mg PO DAILY 10/17/22 10/17/22 History Allergies Allergy/AdvReac Type Severity Reaction Status Date / Time No Known Allergies Allergy Verified 10/17/22 15:51 Surgical - Exam Vital Signs Temp Pulse Resp BP Pulse Ox 98.1 F 104 H 20 73/51 96 10/17/22 11:42 10/17/22 11:42 10/17/22 11:42 10/17/22 11:42 10/17/22 11:42 - General no distress, no pain - Eyes normal ocular movement, no pale - ENT normal nares, normal mucosa - Respiratory normal expansion, normal respiratory effort - Abdomen Abdomen: soft, non tender - Genitourinary Left PCN site clean, Results - Labs 10/17/22 12:02 10/18/22 04:50 Abnormal Lab Results - Last 24 Hours (Table) 10/17/22 10/17/22 10/17/22 Range/Units 17:41 19:29 20:01 Sodium (137-145) mmol/L Chloride (98-107) mmol/L Carbon Dioxide (22-30) mmol/L BUN (9-20) mg/dL Creatinine (0.66-1.25) mg/dL Glucose (74-99) mg/dL POC Glucose (mg/dL) 136 H 135 H (70-110) mg/dL Plasma Lactic Acid Erick 4.1 H* (0.7-2.0) mmol/L Calcium (8.4-10.2) mg/dL Magnesium (1.6-2.3) mg/dL 10/17/22 10/18/22 10/18/22 Range/Units 22:46 01:18 04:50 Sodium (137-145) mmol/L Chloride (98-107) mmol/L Carbon Dioxide (22-30) mmol/L BUN (9-20) mg/dL Creatinine (0.66-1.25) mg/dL Glucose (74-99) mg/dL POC Glucose (mg/dL) (70-110) mg/dL Plasma Lactic Acid Erick 3.3 H* 2.6 H* (0.7-2.0) mmol/L Calcium (8.4-10.2) mg/dL Magnesium 0.8 L* (1.6-2.3) mg/dL 10/18/22 10/18/22 10/18/22 Range/Units 04:50 06:08 12:18 Sodium 135 L (137-145) mmol/L Chloride 109 H (98-107) mmol/L Carbon Dioxide 14 L (22-30) mmol/L BUN 50 H (9-20) mg/dL Creatinine 2.92 H (0.66-1.25) mg/dL Glucose 133 H (74-99) mg/dL POC Glucose (mg/dL) 128 H 154 H (70-110) mg/dL Plasma Lactic Acid Erick (0.7-2.0) mmol/L Calcium 6.9 L (8.4-10.2) mg/dL Magnesium (1.6-2.3) mg/dL 10/18/22 Range/Units 17:22 Sodium (137-145) mmol/L Chloride (98-107) mmol/L Carbon Dioxide (22-30) mmol/L BUN (9-20) mg/dL Creatinine (0.66-1.25) mg/dL Glucose (74-99) mg/dL POC Glucose (mg/dL) 126 H (70-110) mg/dL Plasma Lactic Acid Erick (0.7-2.0) mmol/L Calcium (8.4-10.2) mg/dL Magnesium (1.6-2.3) mg/dL Diabetes panel 10/18/22 Range/Units 04:50 Sodium 135 L (137-145) mmol/L Potassium 4.3 (3.5-5.1) mmol/L Chloride 109 H (98-107) mmol/L Carbon Dioxide 14 L (22-30) mmol/L BUN 50 H (9-20) mg/dL Creatinine 2.92 H (0.66-1.25) mg/dL Glucose 133 H (74-99) mg/dL Calcium 6.9 L (8.4-10.2) mg/dL Calcium panel 10/18/22 Range/Units 04:50 Calcium 6.9 L (8.4-10.2) mg/dL Pituitary panel 10/18/22 Range/Units 04:50 Sodium 135 L (137-145) mmol/L Potassium 4.3 (3.5-5.1) mmol/L Chloride 109 H (98-107) mmol/L Carbon Dioxide 14 L (22-30) mmol/L BUN 50 H (9-20) mg/dL Creatinine 2.92 H (0.66-1.25) mg/dL Glucose 133 H (74-99) mg/dL Calcium 6.9 L (8.4-10.2) mg/dL Adrenal panel 10/18/22 Range/Units 04:50 Sodium 135 L (137-145) mmol/L Potassium 4.3 (3.5-5.1) mmol/L Chloride 109 H (98-107) mmol/L Carbon Dioxide 14 L (22-30) mmol/L BUN 50 H (9-20) mg/dL Creatinine 2.92 H (0.66-1.25) mg/dL Glucose 133 H (74-99) mg/dL Calcium 6.9 L (8.4-10.2) mg/dL Assessment and Plan Assessment: 81 yo hx of bilateral hydronephrosis, left hydronephrosis been managed with PCN. Urology is consulted for evaluation of left PCN. I reviewed the CT PCN is within the collecting system, there is significant improvement of hydronephrosis. I was able to flush and irrigate the PCN without difficulties. At this time there is no evidence of blockage or malfunction of PCN. -F/U with his urologist as an outpatient for continued management of his PCN -given stability of right hydronephrosis recommend continued observation and trending his creat. If creat fails to trend down, can consider PCN placement,
[2022-10-18 17:53] LABS: Appearance,Urine Turbid (Clear); Bacteria,Urine Many /hpf; Bilirubin,Urine Negative (Negative); Blood,Urine Moderate (Negative); Color,Urine Light Red; Glucose,Urine (UA) Negative (Negative); Ketones,Urine Negative (Negative); Leukocyte Esterase,Urine Large (Negative); Nitrite,Urine Negative (Negative); PH, Urine 7.5 (5.0-8.0); Protein,Urine 3+ (Negative); RBC,Urine 54 /hpf (0-5); Urobilinogen,Urine <2.0 mg/dL (<2.0); WBC,Urine >182 /hpf (0-5)
[2022-10-18 17:54] LABS: Specific Gravity,Urine 1.016 (1.001-1.035)
[2022-10-18 19:55] LABS: Glucose,Whole Blood 134 mg/dL (70-110)
--- NOTE | 2022-10-18 20:03 | P.PN ---
Progress Note - Text Progress Note Date: 10/18/22 Chief Complaint: Decreased urine output and abdominal pain 81-year-old patient who follows with visiting physicians Dr. diaz. Patient is a limited historian. As per the ER physician patient's. [facility] Has a percutaneous nephrostomy tube. Also has a colostomy. Patient is not sure why he is in the ER. But he was apparently sent in for decreased urine output and some abdominal pain. Patient denies abdominal pain. Has decreased output. Denies any fever and chills. Has not walked for about 2 months. No nausea vomiting. Patient was hypotensive in the ER. Given IV fluids. IV ceftriaxone. Concern about sepsis. No fever recorded. Has a sacral decubitus ulcer Admitted with possible sepsis. Source unclear. Decreased urine output. Hypotension. October 18: Reclining in bed. Decreased appetite. We'll have the patient have assisted feeding. Blood cultures pending. Active Medications Acetaminophen (Acetaminophen Tab 325 Mg Tab) 650 mg PO Q6HR PRN PRN Reason: Mild Pain or Fever > 100.5 Last Admin: 10/18/22 10:22 Dose: 650 mg Sodium Chloride (Saline 0.9%) 1,000 mls @ 75 mls/hr IV .[id number] [facility] Last Admin: 10/18/22 19:00 Dose: 75 mls/hr Meropenem 1 gm/ Sodium (Chloride) 100 mls @ 33.333 mls/hr IVPB Q12HR [facility] Last Admin: 10/18/22 15:01 Dose: 33.333 mls/hr Magnesium Oxide (Magnesium Oxide 400 Mg Tab) 400 mg PO BID [facility] Last Admin: 10/18/22 12:46 Dose: 400 mg Naloxone HCl (Naloxone 0.4 Mg/Ml 1 Ml Vial) 0.2 mg IV Q2M PRN PRN Reason: Opioid Reversal Physical examination: VITAL SIGNS: 96.9, 69, 20, 90/55, 95% room air GENERAL: Reclining, awake EYES: Pupils equal. Conjunctiva normal. HEENT: External appearance of nose and ears normal, oral cavity grossly normal. NECK: JVD not raised; masses not palpable. HEART: First and second heart sounds are normal; no edema. LUNGS:[ Respiratory rate normal; decreased breath sounds. ABDOMEN: Soft, nontender, liver spleen not palpable, no masses palpable. Colostomy bag. Bilateral nephrostomy tube PSYCH: Answering simple questions MUSCULOSKELETAL:No Clubbing/cyanosis;muscles-grossly intact. OA INVESTIGATIONS, reviewed in the clinical context: UA: Protein 3+ leukoesterase WBC October 18: Potassium 4.3 BUN 50 creatinine 2.9 to magnesium 0.8 WBC 25.4 hemoglobin 11.6 platelets 366 sodium 134 potassium 4.8 BUN 45 creatinine 2.84 Lactic acid 4.4 Magnesium 0.7 albumin 2.3 EKG tracing personally reviewed by me-possible multifocal atrial tachycardia with PVC Chest x-ray film personally reviewed by me-unremarkable CT abdomen and pelvis without contrast: Moderate to severe left-sided hydronephrosis improved to prior exam. Last status post continues nephrostomy tube is.. Right kidney: Mild to moderate right-sided height 2. Hydronephrosis. Unchanged. Assessment and plan: -Probable sepsis with leukocytosis, hypotension. IV meropenem. Source unknown -left nephrostomy tubes, with moderate to severe left-sided hydronephrosis. There is some improvement from prior study. Decreased output probably due to hypotension and hypovolemia -Significant cognitive impairment -Chronic medical debility, patient is nonambulatory -Hypotension possibly combination off sepsis and poor oral intake Stop Zestril. Stop Lasix. IV fluids -Hyperlipidemia Lipitor -GERD PPI -Acute kidney injury with no prior labs available for comparison. Possibly ATN from hypotension. Element of obstructive uropathy. With bilateral hydronep hrosis. Decreased urine output. Follow with nephrology -Lactic acidosis multifactorial -Metabolic acidosis probably from kidney disease -Sacral decub's wound. Wound care Patient barely eating. Increase IV fluids to 1 30 mL an hour. Eyes nose. IV meropenem. Await culture results.
[2022-10-18] MEDS: ATORVASTATIN 20 MG TAB PO SCH (20:59)
[2022-10-18] MEDS: allopurinoL 100 MG TAB PO SCH (20:59)
[2022-10-19] MEDS: ACETAMINOPHEN TAB 325 MG TAB PO PRN (00:20)
[2022-10-19 06:21] LABS: Glucose,Whole Blood 106 mg/dL (70-110)
[2022-10-19] MEDS: SODIUM CHLORIDE 0.9% 1,000 ML IV SCH ×2 (06:49→07:09)
[2022-10-19] MEDS: PANTOPRAZOLE 40 MG TABLET PO SCH (06:49)
[2022-10-19] MEDS: MAGNESIUM OXIDE 400 MG TAB PO SCH ×2 (09:50→20:32)
[2022-10-19] MEDS: ATORVASTATIN 20 MG TAB PO SCH (09:50)
[2022-10-19] MEDS: CYANOCOBALAMIN 500 MCG TAB PO SCH (09:50)
[2022-10-19] MEDS: allopurinoL 100 MG TAB PO SCH (09:50)
[2022-10-19] MEDS: MEROPENEM 1 GM in SODIUM CHLORIDE 0.9% 100 ML IVPB SCH ×2 (09:51→20:33)
[2022-10-19] MEDS: LACTOBACILLUS ACIDOPH & BULGAR 1 EACH PACKET PO SCH (09:58)
[2022-10-19] MEDS: FOLIC ACID-VIT B COMPLEX-VIT C 1 CAP PO SCH (10:00)
[2022-10-19] MEDS: DEXTROSE 5% IN WATER 1,000 ML with SODIUM BICARB (1 MEQ/ML) 150 ML IV SCH (10:47)
[2022-10-19 11:41] LABS: Glucose,Whole Blood 126 mg/dL (70-110)
--- NOTE | 2022-10-19 11:53 | P.PN ---
Subjective Patient is seen for follow-up for advanced renal failure with history of bilateral hydronephrosis status post left nephrostomy tube placement and pe rsistent right hydronephrosis. Patient has been hypotensive and has not had much urine output in the bladder or from the left nephrostomy tube. The left PCN was flushed by urologist yesterday and appeared to be functional. Mentation is slightly better today. Blood pressure remains low with systolic noted at 77 mmHg earlier this morning. No nausea vomiting or abdominal pain. Objective - Vital Signs Vital signs: Vital Signs Temp 97.5 F L 10/19/22 08:00 Pulse 95 10/19/22 08:00 Resp 16 10/19/22 08:00 BP 85/58 10/19/22 08:00 Pulse Ox 93 L 10/19/22 09:09 FiO2 Intake & Output 10/18/22 10/19/22 10/19/22 18:59 06:59 18:59 Intake Total 1400 240 Output Total 20 100 Balance 1380 240 -100 Weight 104.326 kg Intake: Intake, IV Titration 1400 Amount Magnesium Sulfate-D5w Pmx 400 1 gm In Dextrose/Water 1 100ml.bag @ 100 mls/hr IVPB Q1H [facility] Rx#: [id number] Meropenem 1 gm In Sodium 100 Chloride 0.9% 100 ml @ 33 .333 mls/hr IVPB Q12HR [facility] Rx#:[id number] Sodium Chloride 0.9% 1, 900 000 ml @ 75 mls/hr IV . 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 - Labs CBC & Chem 7: 10/17/22 12:02 10/18/22 04:50 Labs: Abnormal Lab Results - Last 24 Hours (Table) 10/18/22 10/18/22 10/18/22 Range/Units 04:50 10:40 12:18 Sodium 135 L (137-145) mmol/L Chloride 109 H (98-107) mmol/L Carbon Dioxide 14 L (22-30) mmol/L BUN 50 H (9-20) mg/dL Creatinine 2.92 H (0.66-1.25) mg/dL Glucose 133 H (74-99) mg/dL POC Glucose (mg/dL) 154 H (70-110) mg/dL Calcium 6.9 L (8.4-10.2) mg/dL Urine Protein 3+ H (Negative) Urine Blood Moderate H (Negative) Ur Leukocyte Esterase Large H (Negative) Urine RBC 54 H (0-5) /hpf Urine WBC >182 H (0-5) /hpf Urine WBC Clumps Many H (None) /hpf Urine Bacteria Many H (None) /hpf 10/18/22 10/18/22 10/19/22 Range/Units 17:22 19:49 11:39 Sodium (137-145) mmol/L Chloride (98-107) mmol/L Carbon Dioxide (22-30) mmol/L BUN (9-20) mg/dL Creatinine (0.66-1.25) mg/dL Glucose (74-99) mg/dL POC Glucose (mg/dL) 126 H 134 H 126 H (70-110) mg/dL Calcium (8.4-10.2) mg/dL Urine Protein (Negative) Urine Blood (Negative) Ur Leukocyte Esterase (Negative) Urine RBC (0-5) /hpf Urine WBC (0-5) /hpf Urine WBC Clumps (None) /hpf Urine Bacteria (None) /hpf Microbiology - Last 24 Hours (Table) 10/17/22 11:56 Blood Culture Gram Stain - Preliminary Blood Blood Culture - Preliminary Gram Neg Bacilli 10/17/22 11:48 Blood Culture - Preliminary Blood Assessment and Plan Assessment: 1. Acute kidney injury with no previous labs available for comparison. Most likely ATN with underlying hypotension as well as component of Obstructive uropathy and bilateral hydronephrosis with improvement in hydronephrosis on the left side however patient has not had any output from his left nephrostomy tube. Right hydronephrosis persists. PCN was flushed by urologist and appear to be functional. Blood pressure remains low therefore midodrine will be added. Repeat bladder scan today. 2. Lactic acidosis status post IV fluids, improved 3. History of acute kidney injury needing temporary dialysis previously, details not known 4. Metabolic acidosis associated with lactic acidosis and acute kidney injury 5. History of recent cardiac arrest at hospitalization at [facility] in [place] 6. Sepsis with blood cultures growing gram-negative bacilli 7. Non-gap metabolic acidosis secondary to acute kidney injury 8. Hypomagnesemia status post replacement Plan: Repeat labs today as well as in a.m. Add midodrine Continue with IV fluids and switch to IV bicarb Repeat bladder scan Follow-up on labs from today
--- NOTE | 2022-10-19 12:05 | P.CONS ---
History of Present Illness - Reason for Consult Consult date: 10/19/22 wound care - History of Present Illness This is an 81-year-old gentleman being seen on [facility] for stage I pressure ulcer to the sacral. Patient has excoriation to the right and left buttocks and a stage I pressure ulcer with no open ulcerations to the site. Patient states she does not know how long that the area has been irritated. Patient's right and left buttocks is excoriated with maceration. Past medical history significant for colon cancer with colostomy, diabetes, recurrent infarction, cardiac arrest 2 in 2021 speech changes and decreased mobility. Patient is a lifelong nonsmoker. He does utilize marijuana for rheumatoid arthritis Review Of Systems: Constitutional: No fever, no chills, no night sweats. No weight change. No weakness, fatigue or lethargy. No daytime sleepiness. Integumentary:reports wounds, no lesions. No rash or pruritus. No unusual bruising. No change in hair or nails. Physical exam: General Appearance: Alert, cooperative, no distress, appears stated age. Skin: See HPI all other Skin color, texture, tugor normal, no rashes or lesions. Neurologic: Alert oriented x3 Assessment: 1. Stage I pressure ulcer sacrum 2. Diabetes with skin ulceration Plan: 1. Apply triad to the site daily. Utilizing a full discussion when sitting. Turn patient every 2 hours. Review his nutrition status and increased protein. Thank you for the consultation any questions to contact the wound care center DNP note has been reviewed and discussed with Dr. Muniz and the impression and plan of care has been directed as dictated. Past Medical History Past Medical History: Cancer, Diabetes Mellitus, Myocardial Infarction (HI), Renal Disease Additional Past Medical History / Comment(s): Heart murmur, colon ca with colostomy bag, kidney stone with nephrostomy tube, cardiac arrest x2 in 2021 with speech changes and decrease mobility Last Myocardial Infarction Date:: feb 2022 History of Any Multi-Drug Resistant Organisms: Unobtainable Past Surgical History: Unable to Obtain, Bowel Resection, Orthopedic Surgery Additional Past Surgical History / Comment(s): colostomy, nepro tube, left knee, cataract surgery Past Anesthesia/Blood Transfusion Reactions: No Reported Reaction Smoking Status: Never smoker - Past Family History Mother Family Medical History: Rheumatoid Arthritis (RA) Medications and Allergies Home Medications Medication Instructions Recorded Confirmed Type Atorvastatin [Lipitor] 20 mg PO DAILY 10/17/22 10/17/22 History Cyanocobalamin (Vitamin B-12) 1,000 mcg PO DAILY 10/17/22 10/17/22 History [Vitamin B-12] Ferrous Sulfate [Feosol] 325 mg PO DAILY 10/17/22 10/17/22 History Furosemide [Lasix] 20 mg PO DAILY 10/17/22 10/17/22 History L.acidoph,Paracasei, B.lactis 1 cap PO DAILY 10/17/22 10/17/22 History [Probiotic] Nitrofurantoin Monohyd/M-Cryst 100 mg PO Q12HR 10/17/22 10/17/22 History [Macrobid] Omeprazole [PriLOSEC] 20 mg PO DAILY 10/17/22 10/17/22 History Vit B Comp No.3/Folic/C/Biotin 1 tab PO DAILY 10/17/22 10/17/22 History [Melody-Katerina Rx Tablet] allopurinoL [Zyloprim] 100 mg PO DAILY 10/17/22 10/17/22 History lisinopriL [Zestril] 5 mg PO DAILY 10/17/22 10/17/22 History Allergies Allergy/AdvReac Type Severity Reaction Status Date / Time No Known Allergies Allergy Verified 10/17/22 15:51 Physical Exam Vitals: Vital Signs Temp Pulse Resp BP BP Pulse Ox 10/19/22 09:09 93 L 10/19/22 08:00 97.5 F L 95 16 85/58 94 L 10/19/22 04:00 97.5 F L 100 16 91/55 93 L 10/19/22 00:00 97.4 F L 81 16 77/48 95 10/18/22 20:00 97.4 F L 54 L 18 82/52 93 L 10/18/22 16:52 97.6 F 99 20 78/55 87/55 95 Intake and Output 10/18/22 10/19/22 10/19/22 22:59 06:59 14:59 Intake Total 1640 Output Total 100 Balance 1640 -100 Intake: Intake, IV Titration 1400 Amount Magnesium Sulfate-D5w Pmx 400 1 gm In Dextrose/Water 1 100ml.bag @ 100 mls/hr IVPB Q1H [facility] Rx#: [id number] Meropenem 1 gm In Sodium 100 Chloride 0.9% 100 ml @ 33 .333 mls/hr IVPB Q12HR [facility] Rx#:[id number] Sodium Chloride 0.9% 1, 900 000 ml @ 75 mls/hr IV . [id number] [facility] Rx#:[id number] Oral 240 Output: Post Void Residual 0 Stool 100 Other: Voiding Method Diaper Diaper Diaper Incontinent Incontinent Incontinent Weight 104.326 kg Results CBC & Chem 7: 10/17/22 12:02 10/18/22 04:50 Labs: Abnormal Lab Results - Last 24 Hours (Table) 10/18/22 10/18/22 10/18/22 Range/Units 04:50 10:40 12:18 Sodium 135 L (137-145) mmol/L Chloride 109 H (98-107) mmol/L Carbon Dioxide 14 L (22-30) mmol/L BUN 50 H (9-20) mg/dL Creatinine 2.92 H (0.66-1.25) mg/dL Glucose 133 H (74-99) mg/dL POC Glucose (mg/dL) 154 H (70-110) mg/dL Calcium 6.9 L (8.4-10.2) mg/dL Urine Protein 3+ H (Negative) Urine Blood Moderate H (Negative) Ur Leukocyte Esterase Large H (Negative) Urine RBC 54 H (0-5) /hpf Urine WBC >182 H (0-5) /hpf Urine WBC Clumps Many H (None) /hpf Urine Bacteria Many H (None) /hpf 10/18/22 10/18/22 10/19/22 Range/Units 17:22 19:49 11:39 Sodium (137-145) mmol/L Chloride (98-107) mmol/L Carbon Dioxide (22-30) mmol/L BUN (9-20) mg/dL Creatinine (0.66-1.25) mg/dL Glucose (74-99) mg/dL POC Glucose (mg/dL) 126 H 134 H 126 H (70-110) mg/dL Calcium (8.4-10.2) mg/dL Urine Protein (Negative) Urine Blood (Negative) Ur Leukocyte Esterase (Negative) Urine RBC (0-5) /hpf Urine WBC (0-5) /hpf Urine WBC Clumps (None) /hpf Urine Bacteria (None) /hpf Microbiology - Last 24 Hours (Table) 10/17/22 11:56 Blood Culture Gram Stain - Preliminary Blood Blood Culture - Preliminary Gram Neg Bacilli 10/17/22 11:48 Blood Culture - Preliminary Blood Assessment and Plan (1) Pressure ulcer of sacral region, stage 1 Current Visit: Yes Status: Acute Code(s): L89.151 - PRESSURE ULCER OF SACRAL REGION, STAGE 1 SNOMED Code(s): 86309501868431 (2) Type 2 diabetes mellitus with other skin ulcer Current Visit: Yes Status: Acute Code(s): E11.622 - TYPE 2 DIABETES MELLITUS WITH OTHER SKIN ULCER; L98.499 - NON-PRESSURE CHRONIC ULCER OF SKIN OF SITES W UNSP SEVERITY SNOMED Code(s): 064746611
[2022-10-19 12:52] LABS: INR 1.1 (<1.2); Prothrombin Time 11.6 sec (9.0-12.0)
[2022-10-19 12:58] LABS: Anion Gap 14 mmol/L; Blood Urea Nitrogen 58 mg/dL (9-20); Calcium 7.2 mg/dL (8.4-10.2); Carbon Dioxide 13 mmol/L (22-30); Chloride 109 mmol/L (98-107); Glucose 106 mg/dL (74-99); Magnesium 1.7 mg/dL (1.6-2.3); Potassium 4.3 mmol/L (3.5-5.1); Sodium 136 mmol/L (137-145)
[2022-10-19 13:04] LABS: African American GFR (CKD) 17 (>60 ml/min/1.73 sqM); Non-African American GFR(CKD) 15 (>60 ml/min/1.73 sqM)
[2022-10-19] MEDS: MIDODRINE 5 MG TAB PO SCH ×3 (14:26→20:32)
--- NOTE | 2022-10-19 14:30 | P.PN ---
Subjective Progress Note Date: 10/19/22 I am seeing this patient in new consultation today 10/18/2022 on the cardiac stepdown floor for possible UTI. Patient is an 81-year-old male who is debilitated, and currently lives with his son. Patient is a poor historian, this HPI is supplemented with the chart and information provided from his son. Patient apparently has a history of recent kidney stone and sepsis resulting in left nephrostomy tube back in February 2022 at [facility]. Patient reportedly went to rehab after this, and has never fully recovered. The patient later had a heart attack and was on the mechanical ventilator for about 10 days. During this admission at [facility], he reportedly had 2 episodes of cardiac arrest. He reportedly had acute kidney injury and had temporary hemodialysis as well. He also has a remote history of colon cancer status post colectomy and ileostomy, slurred speech after his last cardiac arrest, and is an ex-smoker. 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 Patient's son says that he is mostly bedbound at home. He has been experiencing reduced appetite, nausea and vomiting, left-sided abdominal pain, reduced nephrostomy tube output, and penile discharge that started approximately 24 hours ago. This prompted the patient to come to the emergency room yesterday afternoon. 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 Patient is currently resting in bed, on room air, in no acute distress. He denies any dysuria, frequency, hematuria. He still voids, and is incontinent of urine. No urine output seen in the nephrostomy pouch. There appears to be a small amount of purulent fluid. He does report left-sided abdominal and flank pain. No significant CVA tenderness. There is a functional ileostomy with brown output. Denies bloody bowel movements. Chest x-ray on arrival showed no active cardiopulmonary disease. CBC on arrival shows some leukocytosis with a WBC count of 25.4, hemoglobin 11.6, hematocrit 38, platelets 366. BMP shows sodium 134, potassium 4.8, chloride 103, serum CO2 18, BUN 45, creatinine 2.84, glucose 142. Lactic acid level wasn't elevated at 4.6 and is down to 2.6. Patient has received a total of 2.5 L normal saline bolus. Has received 2 doses of Rocephin. Is currently afebrile. Vital signs are stable. The patient is seen today 10/19/2022 in follow-up on the selective care unit. He is currently sitting up in a chair at the bedside. Awake and alert in no acute distress. He is maintaining O2 saturations in the 90s on room air. He currently is on a bicarb drip at 80 MLS per hour. Antibiotics in the form of meropenem. Blood culture positive for gram-negative bacilli. INR 1.1. Sodium 136. Potassium 4.3. Bicarb 13. BUN 58. Creatinine 3.62. Glucose 106. He is currently maintaining good O2 saturations in the 90s on room air. He's been afebrile. Hemodynamically stable. Objective - Vital Signs Vital signs: Vital Signs Temp 97.5 F L 10/19/22 12:00 Pulse 96 10/19/22 12:00 Resp 16 10/19/22 12:00 BP 90/70 10/19/22 12:00 Pulse Ox 93 L 10/19/22 12:00 FiO2 Intake & Output 10/18/22 10/19/22 10/19/22 18:59 06:59 18:59 Intake Total 1400 240 110 Output Total 20 200 Balance 1380 240 -90 Weight 104.326 kg Intake: Intake, IV Titration 1400 Amount Magnesium Sulfate-D5w Pmx 400 1 gm In Dextrose/Water 1 100ml.bag @ 100 mls/hr IVPB Q1H [facility] Rx#: [id number] Meropenem 1 gm In Sodium 100 Chloride 0.9% 100 ml @ 33 .333 mls/hr IVPB Q12HR [facility] Rx#:[id number] Sodium Chloride 0.9% 1, 900 000 ml @ 75 mls/hr IV . [id number] [facility] Rx#:[id number] Oral 0 240 110 Output: Urine 20 Post Void Residual 0 Stool 200 Other: Voiding Method Diaper Diaper Diaper Incontinent Incontinent Incontinent - Exam GENERAL EXAM: Alert, pleasant 81-year-old male, on room air, comfortable in no apparent distress. HEAD: Normocephalic and atraumatic EYES: Normal reaction of pupils, equal size. NOSE: Clear with pink turbinates. THROAT: No erythema or exudates. NECK: No masses, no JVD. CHEST: No chest wall deformity. LUNGS: Equal air entry with no crackles, wheeze, rhonchi or dullness. No conversational dyspnea or accessory muscle use.. CVS: S1 and S2 normal with no audible murmur, regular rhythm. No extra heart sounds ABDOMEN: No hepatosplenomegaly, active bowel sounds, no guarding or rigidity. Left-sided nephrostomy tube without urine and small amount of purulent drainage. No significant CVA tenderness. There is a functional ileostomy with brown output SPINE: No scoliosis or deformity SKIN: No rashes CENTRAL NERVOUS SYSTEM: No focal deficits, tone is normal in all 4 extremities. Dysarthria and slurred speech EXTREMITIES: There is bilateral lower extremity 2+ edema. No clubbing, or cyano sis. Peripheral pulses are intact. Left foot drop - Labs CBC & Chem 7: 10/17/22 12:02 10/19/22 12:14 Labs: Abnormal Lab Results - Last 24 Hours (Table) 10/18/22 10/18/22 10/18/22 Range/Units 10:40 17:22 19:49 Sodium (137-145) mmol/L Chloride (98-107) mmol/L Carbon Dioxide (22-30) mmol/L BUN (9-20) mg/dL Creatinine (0.66-1.25) mg/dL Glucose (74-99) mg/dL POC Glucose (mg/dL) 126 H 134 H (70-110) mg/dL Calcium (8.4-10.2) mg/dL Urine Protein 3+ H (Negative) Urine Blood Moderate H (Negative) Ur Leukocyte Esterase Large H (Negative) Urine RBC 54 H (0-5) /hpf Urine WBC >182 H (0-5) /hpf Urine WBC Clumps Many H (None) /hpf Urine Bacteria Many H (None) /hpf 10/19/22 10/19/22 Range/Units 11:39 12:14 Sodium 136 L (137-145) mmol/L Chloride 109 H (98-107) mmol/L Carbon Dioxide 13 L (22-30) mmol/L BUN 58 H (9-20) mg/dL Creatinine 3.62 H (0.66-1.25) mg/dL Glucose 106 H (74-99) mg/dL POC Glucose (mg/dL) 126 H (70-110) mg/dL Calcium 7.2 L (8.4-10.2) mg/dL Urine Protein (Negative) Urine Blood (Negative) Ur Leukocyte Esterase (Negative) Urine RBC (0-5) /hpf Urine WBC (0-5) /hpf Urine WBC Clumps (None) /hpf Urine Bacteria (None) /hpf Microbiology - Last 24 Hours (Table) 10/17/22 11:56 Blood Culture Gram Stain - Preliminary Blood Blood Culture - Preliminary Gram Neg Bacilli 10/17/22 11:48 Blood Culture - Preliminary Blood Assessment and Plan Assessment: Possible UTI, however, no urinalysis or urine cultures have been collected. Patient's left nephrostomy has been nonfunctional for the last [address] of the abdomen pelvis actually shows improvement of the patient's previous moderate to severe left-sided hydronephrosis from prior exam. There is a small focus of air within the renal pelvis. There is stable mild to moderate right-sided hydroureter nephrosis. Bacteremia secondary to gram-negative bacilli Leukocytosis secondary to above History of kidney stone and urosepsis resulting in left nephrostomy Acute on chronic kidney disease. Currently 3.62, previous history of temporary dialysis Lactic acidosis, improving History of colon cancer status post colectomy and ileostomy. 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 History of cardiac arrest, resulting in prolonged mechanical ventilation Ex-smoker Plan: The patient was seen and evaluated Currently stable and on room air Microbiology, labs and medications reviewed Currently on meropenem Continue bicarb drip We will continue to follow I have personally seen and examined the patient, performed the documentation and the assessment and plan as written. Number of minutes spent on the visit: 10.
[2022-10-19] MEDS: HYDROPHILIC CREAM 180 GM TUBE TOPICAL SCH (14:55)
[2022-10-19] MEDS: droNABinol 2.5 MG CAP PO SCH ×2 (14:55→18:01)
--- NOTE | 2022-10-19 15:35 | P.PN ---
Progress Note - Text Progress Note Date: 10/19/22 Chief Complaint: Decreased urine output and abdominal pain 81-year-old patient who follows with visiting physicians Dr. diaz. Patient is a limited historian. As per the ER physician patient's. [facility] Has a percutaneous nephrostomy tube. Also has a colostomy. Patient is not sure why he is in the ER. But he was apparently sent in for decreased urine output and some abdominal pain. Patient denies abdominal pain. Has decreased output. Denies any fever and chills. Has not walked for about 2 months. No nausea vomiting. Patient was hypotensive in the ER. Given IV fluids. IV ceftriaxone. Concern about sepsis. No fever recorded. Has a sacral decubitus ulcer Admitted with possible sepsis. Source unclear. Decreased urine output. Hypotension. October 18: Reclining in bed. Decreased appetite. We'll have the patient have assisted feeding. Blood cultures pending. October 19: Laying in bed. Not eating. Not hungry. Marinol added. IV meropenem. Blood cultures growing gram-negative bacilli. Sodium bicarbonate drip started for acidosis Active Medications Acetaminophen (Acetaminophen Tab 325 Mg Tab) 650 mg PO Q6HR PRN PRN Reason: Mild Pain or Fever > 100.5 Last Admin: 10/19/22 00:20 Dose: 650 mg Allopurinol (Allopurinol 100 Mg Tab) 100 mg PO DAILY [facility] Last Admin: 10/19/22 09:50 Dose: 100 mg Atorvastatin Calcium (Atorvastatin 20 Mg Tab) 20 mg PO DAILY [facility] Last Admin: 10/19/22 09:50 Dose: 20 mg Cyanocobalamin (Cyanocobalamin 500 Mcg Tab) 1,000 mcg PO DAILY [facility] Last Admin: 10/19/22 09:50 Dose: 1,000 mcg Dronabinol (Dronabinol 2.5 Mg Cap) 2.5 mg PO AC-BID [facility] Last Admin: 10/19/22 14:55 Dose: 2.5 mg Meropenem 1 gm/ Sodium (Chloride) 100 mls @ 33.333 mls/hr IVPB Q12HR [facility] Last Admin: 10/19/22 09:51 Dose: 33.333 mls/hr Sodium Bicarbonate 150 ml/ (Dextrose/Water) 1,150 mls @ 80 mls/hr IV .[id number] [facility] Last Admin: 10/19/22 10:47 Dose: 80 mls/hr Lactobacillus Acidoph/Bulgaricus (Lactobacillus Acidoph & Bulgar 1 Each Packet) 1 each PO DAILY [facility] Last Admin: 10/19/22 09:58 Dose: 1 each Magnesium Oxide (Magnesium Oxide 400 Mg Tab) 400 mg PO BID [facility] Last Admin: 10/19/22 09:50 Dose: 400 mg Midodrine (Midodrine 5 Mg Tab) 10 mg PO AC-TID [facility] Last Admin: 10/19/22 12:26 Dose: 10 mg Multi-Ingred Cream/Lotion/Oil/Oint (Hydrophilic Cream 180 Gm Tube) 1 applic TOPICAL DAILY [facility]; Protocol Last Admin: 10/19/22 14:55 Dose: 1 applic Multivit/Ca Carb/B Cmplx/FA/Prenat (Folic Acid-Vit B Complex-Vit C 1 Cap) 1 each PO DAILY [facility] Last Admin: 10/19/22 10:00 Dose: 1 each Naloxone HCl (Naloxone 0.4 Mg/Ml 1 Ml Vial) 0.2 mg IV Q2M PRN PRN Reason: Opioid Reversal Pantoprazole Sodium (Pantoprazole 40 Mg Tablet) 40 mg PO AC-BRKFST [facility] Last Admin: 10/19/22 06:49 Dose: 40 mg Physical examination: VITAL SIGNS: 97.5, 96, 16, 90/70, 93% room air GENERAL: Reclining, awake EYES: Pupils equal. Conjunctiva normal. HEENT: External appearance of nose and ears normal, oral cavity grossly normal. NECK: JVD not raised; masses not palpable. HEART: First and second heart sounds are normal; no edema. LUNGS:[ Respiratory rate normal; decreased breath sounds. ABDOMEN: Soft, nontender, liver spleen not palpable, no masses palpable. Colostomy bag. Bilateral nephrostomy tube PSYCH: Answering simple questions MUSCULOSKELETAL:No Clubbing/cyanosis;muscles-grossly intact. OA INVESTIGATIONS, reviewed in the clinical context: October 19: Potassium 4.3 BUN 58 creatinine 3.6 to bicarbonate 13 UA: Protein 3+ leukoesterase WBC October 18: Potassium 4.3 BUN 50 creatinine 2.9 to magnesium 0.8 WBC 25.4 hemoglobin 11.6 platelets 366 sodium 134 potassium 4.8 BUN 45 creatinine 2.84 Lactic acid 4.4 Magnesium 0.7 albumin 2.3 EKG tracing personally reviewed by me-possible multifocal atrial tachycardia with PVC Chest x-ray film personally reviewed by me-unremarkable CT abdomen and pelvis without contrast: Moderate to severe left-sided hydronephrosis improved to prior exam. Last status post continues nephrostomy tube is.. Right kidney: Mild to moderate right-sided height 2. Hydronephrosis. Unchanged. Assessment and plan: -sepsis likely secondary to UTI. Blood cultures positive for gram-negative bacilli IV meropenem. -left nephrostomy tubes, with moderate to severe left-sided hydronephrosis. There is some improvement from prior study. Decreased output probably due to hypotension and hypovolemia -Acute metabolic acidosis Started IV bicarbonate drip -Significant cognitive impairment -Chronic medical debility, patient is nonambulatory -Hypotension possibly combination off sepsis and poor oral intake Stop Zestril. Stop Lasix. IV fluids -Hyperlipidemia Lipitor -Significant hypotension Midodrine -GERD PPI -Acute kidney injury with no prior labs available for comparison. Possibly ATN from hypotension. Element of obstructive uropathy. With bilateral hydronephrosis. Decreased urine output. Follow with nephrology -Lactic acidosis multifactorial -Metabolic acidosis probably from kidney disease -Sacral decub's wound. Wound care Marinol added for appetite. Started on sodium bicarbonate drip. IV meropenem to continue. Blood cultures starting positive.
[2022-10-19 16:26] LABS: Glucose,Whole Blood 181 mg/dL (70-110)
--- NOTE | 2022-10-19 18:20 | P.PN ---
Subjective Progress Note Date: 10/19/22 Only produced 20 mm of urine overnight, creatinine is up to 3.6. Objective - Vital Signs Vital signs: Vital Signs Temp 98.1 F 10/19/22 16:00 Pulse 95 10/19/22 16:00 Resp 16 10/19/22 12:00 BP 91/67 10/19/22 16:00 Pulse Ox 93 L 10/19/22 16:00 FiO2 Intake & Output 10/18/22 10/19/22 10/19/22 18:59 06:59 18:59 Intake Total 1400 240 460 Output Total 20 250 Balance 1380 240 210 Weight 104.326 kg Intake: Intake, IV Titration 1400 Amount Magnesium Sulfate-D5w Pmx 400 1 gm In Dextrose/Water 1 100ml.bag @ 100 mls/hr IVPB Q1H [facility] Rx#: [id number] Meropenem 1 gm In Sodium 100 Chloride 0.9% 100 ml @ 33 .333 mls/hr IVPB Q12HR [facility] Rx#:[id number] Sodium Chloride 0.9% 1, 900 000 ml @ 75 mls/hr IV . [id number] [facility] Rx#:[id number] Oral 0 240 460 Output: Urine 20 Post Void Residual 0 Stool 250 Other: Voiding Method Diaper Diaper Diaper Incontinent Incontinent Incontinent - Constitutional General appearance: Present: no acute distress - Gastrointestinal General gastrointestinal: Present: soft. Absent: distended, tenderness - Psychiatric Psychiatric: Present: A&O x's 3 - Labs CBC & Chem 7: 10/17/22 12:02 10/19/22 12:14 Labs: Abnormal Lab Results - Last 24 Hours (Table) 10/18/22 10/19/22 10/19/22 Range/Units 19:49 11:39 12:14 Sodium 136 L (137-145) mmol/L Chloride 109 H (98-107) mmol/L Carbon Dioxide 13 L (22-30) mmol/L BUN 58 H (9-20) mg/dL Creatinine 3.62 H (0.66-1.25) mg/dL Glucose 106 H (74-99) mg/dL POC Glucose (mg/dL) 134 H 126 H (70-110) mg/dL Calcium 7.2 L (8.4-10.2) mg/dL 10/19/22 Range/Units 16:24 Sodium (137-145) mmol/L Chloride (98-107) mmol/L Carbon Dioxide (22-30) mmol/L BUN (9-20) mg/dL Creatinine (0.66-1.25) mg/dL Glucose (74-99) mg/dL POC Glucose (mg/dL) 181 H (70-110) mg/dL Calcium (8.4-10.2) mg/dL Microbiology - Last 24 Hours (Table) 10/17/22 11:56 Blood Culture Gram Stain - Preliminary Blood Blood Culture - Preliminary Gram Neg Bacilli 10/17/22 11:48 Blood Culture - Preliminary Blood Assessment and Plan Assessment: 81 yo hx of bilateral hydronephrosis, left hydronephrosis been managed with PCN. Urology is consulted for evaluation of left PCN. I reviewed the CT PCN is within the collecting system, there is significant improvement of hydronephrosis. I was able to flush and irrigate the PCN without difficulties. He continues to have low output from the nephrostomy tube, creatinine continues to rise -We'll obtain an nephrostogram to evaluate for dislodged nephrostomy tube
--- NOTE | 2022-10-19 19:45 | P.CONS ---
History of Present Illness - Reason for Consult Consult date: 10/19/22 - History of Present Illness Patient is a 81-year-old male with multiple comorbidities was brought into the ER 2 days ago for evaluation of decreased urine output and abdominal pain patient did have a history of bilateral hydronephrosis and did have a left- sided nephrostomy tube placement and apparently the patient to follow-up with a urologist from different facility patient on presentation to this hospital was afebrile and no fever has been recorded subsequently patient did have a white count 25.4 with a left shift did have elevated BUN/creatinine with a creatinine 3.62 did have elevated lactic acid annual exams are normal urine has been positive blood cultures coming back positive with gram-negative bacilli patient did have a CT of abdominal pelvis moderate to severe left-sided hydronephrosis has improved significantly left-sided percutaneous nephrostomy tube is noted to be in place mild to moderate right-sided hydroureteronephrosis persist essentially unchanged patient is currently being evaluated by urology services infectious he was consulted today concerning for ESBL E. coli in the blood from urinary source most information has been obtained from review the chart as the patient self evaluated good historian patient is currently breathing comfortably has been complaining of some vague abdominal pain unable to quantify it any further did have some nausea but no vomiting denies having any diarrhea Past Medical History Past Medical History: Cancer, Diabetes Mellitus, Myocardial Infarction ([place]), Renal Disease Additional Past Medical History / Comment(s): Heart murmur, colon ca with colostomy bag, kidney stone with nephrostomy tube, cardiac arrest x2 in 2021 with speech changes and decrease mobility Last Myocardial Infarction Date:: feb 2022 History of Any Multi-Drug Resistant Organisms: Unobtainable Past Surgical History: Unable to Obtain, Bowel Resection, Orthopedic Surgery Additional Past Surgical History / Comment(s): colostomy, nepro tube, left knee, cataract surgery Past Anesthesia/Blood Transfusion Reactions: No Reported Reaction Smoking Status: Never smoker - Past Family History Mother Family Medical History: Rheumatoid Arthritis (RA) Medications and Allergies Home Medications Medication Instructions Recorded Confirmed Type Atorvastatin [Lipitor] 20 mg PO DAILY 10/17/22 10/17/22 History Cyanocobalamin (Vitamin B-12) 1,000 mcg PO DAILY 10/17/22 10/17/22 History [Vitamin B-12] Ferrous Sulfate [Feosol] 325 mg PO DAILY 10/17/22 10/17/22 History Furosemide [Lasix] 20 mg PO DAILY 10/17/22 10/17/22 History L.acidoph,Paracasei, B.lactis 1 cap PO DAILY 10/17/22 10/17/22 History [Probiotic] Nitrofurantoin Monohyd/M-Cryst 100 mg PO Q12HR 10/17/22 10/17/22 History [Macrobid] Omeprazole [PriLOSEC] 20 mg PO DAILY 10/17/22 10/17/22 History Vit B Comp No.3/Folic/C/Biotin 1 tab PO DAILY 10/17/22 10/17/22 History [Melody-Katerina Rx Tablet] allopurinoL [Zyloprim] 100 mg PO DAILY 10/17/22 10/17/22 History lisinopriL [Zestril] 5 mg PO DAILY 10/17/22 10/17/22 History Allergies Allergy/AdvReac Type Severity Reaction Status Date / Time No Known Allergies Allergy Verified 10/17/22 15:51 Physical Exam Vitals: Vital Signs Temp Pulse Resp BP BP Pulse Ox 10/19/22 09:09 93 L 10/19/22 08:00 97.5 F L 95 16 85/58 94 L 10/19/22 04:00 97.5 F L 100 16 91/55 93 L 10/19/22 00:00 97.4 F L 81 16 77/48 95 10/18/22 20:00 97.4 F L 54 L 18 82/52 93 L 10/18/22 16:52 97.6 F 99 20 78/55 87/55 95 10/18/22 11:54 96.9 F L 69 20 90/55 95 Intake and Output 10/18/22 10/19/22 10/19/22 22:59 06:59 14:59 Intake Total 1640 Output Total 100 Balance 1640 -100 Intake: Intake, IV Titration 1400 Amount Magnesium Sulfate-D5w Pmx 400 1 gm In Dextrose/Water 1 100ml.bag @ 100 mls/hr IVPB Q1H [facility] Rx#: [id number] Meropenem 1 gm In Sodium 100 Chloride 0.9% 100 ml @ 33 .333 mls/hr IVPB Q12HR [facility] Rx#:[id number] Sodium Chloride 0.9% 1, 900 000 ml @ 75 mls/hr IV . [id number] [facility] Rx#:[id number] Oral 240 Output: Post Void Residual 0 Stool 100 Other: Voiding Method Diaper Diaper Diaper Incontinent Incontinent Incontinent Weight 104.326 kg Results CBC & Chem 7: 10/17/22 12:02 10/19/22 12:14 Labs: Abnormal Lab Results - Last 24 Hours (Table) 10/18/22 10/18/22 10/18/22 Range/Units 04:50 10:40 12:18 Sodium 135 L (137-145) mmol/L Chloride 109 H (98-107) mmol/L Carbon Dioxide 14 L (22-30) mmol/L BUN 50 H (9-20) mg/dL Creatinine 2.92 H (0.66-1.25) mg/dL Glucose 133 H (74-99) mg/dL POC Glucose (mg/dL) 154 H (70-110) mg/dL Calcium 6.9 L (8.4-10.2) mg/dL Urine Protein 3+ H (Negative) Urine Blood Moderate H (Negative) Ur Leukocyte Esterase Large H (Negative) Urine RBC 54 H (0-5) /hpf Urine WBC >182 H (0-5) /hpf Urine WBC Clumps Many H (None) /hpf Urine Bacteria Many H (None) /hpf 10/18/22 10/18/22 Range/Units 17:22 19:49 Sodium (137-145) mmol/L Chloride (98-107) mmol/L Carbon Dioxide (22-30) mmol/L BUN (9-20) mg/dL Creatinine (0.66-1.25) mg/dL Glucose (74-99) mg/dL POC Glucose (mg/dL) 126 H 134 H (70-110) mg/dL Calcium (8.4-10.2) mg/dL Urine Protein (Negative) Urine Blood (Negative) Ur Leukocyte Esterase (Negative) Urine RBC (0-5) /hpf Urine WBC (0-5) /hpf Urine WBC Clumps (None) /hpf Urine Bacteria (None) /hpf Microbiology - Last 24 Hours (Table) 10/17/22 11:56 Blood Culture Gram Stain - Preliminary Blood Blood Culture - Preliminary Gram Neg Bacilli 10/17/22 11:48 Blood Culture - Preliminary Blood Assessment and Plan Plan: 1patient with a ESBL E. coli bacteremia source is likely urinary in this patient who did have a complicated history with bilateral hydroureteronephrosis and did have a nephrostomy tube on the left side and it shows overall improvement on this CAT scan done this admission however did have persistent hydroureteronephrosis on the right side which is being managed by the urology team and recommending no intervention at this point 2-blood cultures will be repeated document clearance of bacteremia 3-patient to continue meropenem 1 g every 24 dose has been adjusted to the kidney function 4-he will likely need PICC line for outpatient antibiotic therapy on discharge We will follow on clinical condition and cultures to further adjust medication if needed Thank you for this consultation we will follow the patient along with you Time with Patient: Greater than 30
[2022-10-19 20:09] LABS: Glucose,Whole Blood 146 mg/dL (70-110)
[2022-10-20] MEDS: DEXTROSE 5% IN WATER 1,000 ML with SODIUM BICARB (1 MEQ/ML) 150 ML IV SCH ×2 (05:32→21:13)
[2022-10-20] MEDS: MIDODRINE 5 MG TAB PO SCH ×3 (06:28→17:28)
[2022-10-20] MEDS: PANTOPRAZOLE 40 MG TABLET PO SCH (06:28)
[2022-10-20] MEDS: droNABinol 2.5 MG CAP PO SCH ×2 (06:28→17:28)
[2022-10-20 06:29] LABS: Glucose,Whole Blood 138 mg/dL (70-110)
[2022-10-20] MEDS ORDERED: LIDOCAINE 1% INJ 10MG/ML (20 ML MDV) ONE (08:32)
--- NOTE | 2022-10-20 08:43 | P.PN ---
Subjective still having very low output from PCN, creatinine is up to 3.6. Objective - Vital Signs Vital signs: Vital Signs Temp 98.4 F 10/20/22 03:59 Pulse 95 10/20/22 03:59 Resp 14 10/20/22 03:59 BP 99/68 10/20/22 03:59 Pulse Ox 96 10/20/22 03:59 FiO2 Intake & Output 10/19/22 10/20/22 10/20/22 18:59 06:59 18:59 Intake Total 460 250 Output Total 300 25 Balance 160 250 -25 Weight 104 kg Intake: Oral 460 250 Output: Urine 25 Post Void Residual 0 Stool 300 Other: Voiding Method Diaper Diaper Incontinent Incontinent - Gastrointestinal General gastrointestinal: Present: soft. Absent: tenderness - Psychiatric Psychiatric: Present: A&O x's 3 - Labs CBC & Chem 7: 10/17/22 12:02 10/19/22 12:14 Labs: Abnormal Lab Results - Last 24 Hours (Table) 10/19/22 10/19/22 10/19/22 Range/Units 11:39 12:14 16:24 Sodium 136 L (137-145) mmol/L Chloride 109 H (98-107) mmol/L Carbon Dioxide 13 L (22-30) mmol/L BUN 58 H (9-20) mg/dL Creatinine 3.62 H (0.66-1.25) mg/dL Glucose 106 H (74-99) mg/dL POC Glucose (mg/dL) 126 H 181 H (70-110) mg/dL Calcium 7.2 L (8.4-10.2) mg/dL 10/19/22 10/20/22 Range/Units 20:04 06:23 Sodium (137-145) mmol/L Chloride (98-107) mmol/L Carbon Dioxide (22-30) mmol/L BUN (9-20) mg/dL Creatinine (0.66-1.25) mg/dL Glucose (74-99) mg/dL POC Glucose (mg/dL) 146 H 138 H (70-110) mg/dL Calcium (8.4-10.2) mg/dL Microbiology - Last 24 Hours (Table) 10/17/22 11:48 Blood Culture - Preliminary Blood 10/17/22 11:56 Blood Culture Gram Stain - Preliminary Blood Blood Culture - Preliminary Gram Neg Bacilli Assessment and Plan Assessment: 81 yo hx of bilateral hydronephrosis, left hydronephrosis been managed with PCN. Having low urine output from PCN. ON CT PCN is within the collecting system and irrigating w/o difficulty . He continues to have low output from the nephrostomy tube, creatinine continues to rise -We'll obtain an nephrostogram to evaluate for dislodged nephrostomy tube
[2022-10-20] MEDS ORDERED: SODIUM CHLORIDE 0.9% 250 ML IV ONE (08:55)
[2022-10-20] MEDS ORDERED: IOPAMIDOL-250 100ML BTL INTRAARTER ONE (09:05)
--- NOTE | 2022-10-20 09:23 | IR ---
EXAMINATION TYPE: IR nephrostomy tube change DATE OF EXAM: 10/20/2022 COMPARISON: NONE HISTORY: Malfunctioning left nephrostomy tube FINDINGS: Procedure had been discussed with the patient's family, the risks, benefits, alternatives, were discu ssed and any questions were answered. Informed consent was obtained. The patient was in a semiprone position prepped and draped on the OR table in the usual sterile fashion. Small amount of dilute contrast was injected. Nephrostomy tube. Left consistent with opacified. Julia ter was cut. An 0.035 guidewire is passed through the catheter and there was placement of a new 8 Steve nch nephrostomy tube over the guidewire. Repeat imaging demonstrated the replacement catheter. DAP - 1.97 Gycm2 of fluoroscopy was provided. IMPRESSION: 1. Successful left nephrostomy exchange.
[2022-10-20] MEDS: CYANOCOBALAMIN 500 MCG TAB PO SCH (10:01)
[2022-10-20] MEDS: allopurinoL 100 MG TAB PO SCH (10:01)
[2022-10-20] MEDS: FOLIC ACID-VIT B COMPLEX-VIT C 1 CAP PO SCH (10:01)
[2022-10-20] MEDS: ATORVASTATIN 20 MG TAB PO SCH (10:01)
[2022-10-20] MEDS: MAGNESIUM OXIDE 400 MG TAB PO SCH ×2 (10:02→21:02)
[2022-10-20] MEDS: LACTOBACILLUS ACIDOPH & BULGAR 1 EACH PACKET PO SCH (10:02)
[2022-10-20] MEDS: MEROPENEM 1 GM in SODIUM CHLORIDE 0.9% 100 ML IVPB SCH ×2 (10:02→21:14)
--- NOTE | 2022-10-20 11:32 | P.PN ---
Subjective Patient is seen for follow-up for advanced renal failure with history of bilateral hydronephrosis status post left nephrostomy tube placement and pe rsistent right hydronephrosis. Patient has been hypotensive and has not had much urine output in the bladder or from the left nephrostomy tube. The left PCN was exchanged this morning and apparently it had output, the amount is not known Mentation is slightly better from admission. Blood pressure remains low No nausea vomiting or abdominal pain. Started on midodrine yesterday. Serum creatinine 3.6 from yesterday, CO2 was 13. Patient is maintained on IV bicarb. Objective - Vital Signs Vital signs: Vital Signs Temp 97.4 F L 10/20/22 10:34 Pulse 95 10/20/22 03:59 Resp 14 10/20/22 10:34 BP 73/44 10/20/22 10:34 Pulse Ox 96 10/20/22 10:34 FiO2 Intake & Output 10/19/22 10/20/22 10/20/22 18:59 06:59 18:59 Intake Total 460 250 70 Output Total 300 25 Balance 160 250 45 Weight 104 kg Intake: IV 70 Oral 460 250 Output: Urine 25 Post Void Residual 0 Stool 300 Other: Voiding Method Diaper Diaper Diaper Incontinent Incontinent Incontinent - Exam Patient is awake, comfortable, no acute distress Examination of the heart S1 and S2 Examination the lungs bilateral breath sounds are heard Abdomen is soft nontender, ileostomy Examination of the lower extremities shows 1+ edema mostly in the ankles PRESSURE DISPATCHER exam shows patient is moving all 4 extremities. - Labs CBC & Chem 7: 10/17/22 12:02 10/19/22 12:14 Labs: Abnormal Lab Results - Last 24 Hours (Table) 10/19/22 10/19/22 10/19/22 Range/Units 11:39 12:14 16:24 Sodium 136 L (137-145) mmol/L Chloride 109 H (98-107) mmol/L Carbon Dioxide 13 L (22-30) mmol/L BUN 58 H (9-20) mg/dL Creatinine 3.62 H (0.66-1.25) mg/dL Glucose 106 H (74-99) mg/dL POC Glucose (mg/dL) 126 H 181 H (70-110) mg/dL Calcium 7.2 L (8.4-10.2) mg/dL 10/19/22 10/20/22 Range/Units 20:04 06:23 Sodium (137-145) mmol/L Chloride (98-107) mmol/L Carbon Dioxide (22-30) mmol/L BUN (9-20) mg/dL Creatinine (0.66-1.25) mg/dL Glucose (74-99) mg/dL POC Glucose (mg/dL) 146 H 138 H (70-110) mg/dL Calcium (8.4-10.2) mg/dL Microbiology - Last 24 Hours (Table) 10/17/22 11:48 Blood Culture - Preliminary Blood 10/17/22 11:56 Blood Culture Gram Stain - Preliminary Blood Blood Culture - Preliminary Gram Neg Bacilli Assessment and Plan Assessment: 1. Acute kidney injury with no previous labs available for comparison. Most likely ATN with underlying hypotension as well as component of Obstructive uropathy and bilateral hydronephrosis with improvement in hydronephrosis on the left side however patient has not had any output from his left nephrostomy tube. Right hydronephrosis persists. PCN was exchanged this morning with decent output as per nursing staff. No documentation noted. Blood pressure remains low and midodrine was started yesterday. 2. Lactic acidosis status post IV fluids, improved 3. History of acute kidney injury needing temporary dialysis previously, details not known 4. Metabolic acidosis associated with lactic acidosis and acute kidney injury 5. History of recent cardiac arrest at hospitalization at [facility] in [place] 6. Sepsis with blood cultures growing gram-negative bacilli 7. Non-gap metabolic acidosis secondary to acute kidney injury 8. Hypomagnesemia status post replacement Plan: Repeat labs today as well as in a.m. Continue with midodrine Check random cortisol level Continue with IV bicarb drip If patient's renal function continues to worsen with no improvement in urine output we will proceed with right nephrostomy tube placement. He may eventually need to be restarted on dialysis.
[2022-10-20 12:05] LABS: Glucose,Whole Blood 148 mg/dL (70-110)
[2022-10-20 12:42] LABS: Anion Gap 11 mmol/L; Blood Urea Nitrogen 63 mg/dL (9-20); Calcium 7.6 mg/dL (8.4-10.2); Carbon Dioxide 19 mmol/L (22-30); Chloride 105 mmol/L (98-107); Glucose 147 mg/dL (74-99); Potassium 4.3 mmol/L (3.5-5.1); Sodium 135 mmol/L (137-145)
[2022-10-20 12:47] LABS: African American GFR (CKD) 14 (>60 ml/min/1.73 sqM); Non-African American GFR(CKD) 12 (>60 ml/min/1.73 sqM)
--- NOTE | 2022-10-20 13:51 | P.PN ---
Progress Note - Text Progress Note Date: 10/20/22 Chief Complaint: Decreased urine output and abdominal pain 81-year-old patient who follows with visiting physicians Dr. diaz. Patient is a limited historian. As per the ER physician patient's. [facility] Has a percutaneous nephrostomy tube. Also has a colostomy. Patient is not sure why he is in the ER. But he was apparently sent in for decreased urine output and some abdominal pain. Patient denies abdominal pain. Has decreased output. Denies any fever and chills. Has not walked for about 2 months. No nausea vomiting. Patient was hypotensive in the ER. Given IV fluids. IV ceftriaxone. Concern about sepsis. No fever recorded. Has a sacral decubitus ulcer Admitted with possible sepsis. Source unclear. Decreased urine output. Hypotension. October 18: Reclining in bed. Decreased appetite. We'll have the patient have assisted feeding. Blood cultures pending. October 19: Laying in bed. Not eating. Not hungry. Marinol added. IV meropenem. Blood cultures growing gram-negative bacilli. Sodium bicarbonate drip started for acidosis October 20: Patient slightly decreased urine output to the nephrostomy tube. Today nephrostogram being carried out by urology. May need to change to 2. Maintenance IV meropenem. IV bicarbonate drip. Decreased appetite. Active Medications Acetaminophen (Acetaminophen Tab 325 Mg Tab) 650 mg PO Q6HR PRN PRN Reason: Mild Pain or Fever > 100.5 Last Admin: 10/19/22 00:20 Dose: 650 mg Allopurinol (Allopurinol 100 Mg Tab) 100 mg PO DAILY [facility] Last Admin: 10/20/22 10:01 Dose: 100 mg Atorvastatin Calcium (Atorvastatin 20 Mg Tab) 20 mg PO DAILY [facility] Last Admin: 10/20/22 10:01 Dose: 20 mg Cyanocobalamin (Cyanocobalamin 500 Mcg Tab) 1,000 mcg PO DAILY [facility] Last Admin: 10/20/22 10:01 Dose: 1,000 mcg Dronabinol (Dronabinol 2.5 Mg Cap) 2.5 mg PO AC-BID [facility] Last Admin: 10/20/22 06:28 Dose: 2.5 mg Meropenem 1 gm/ Sodium (Chloride) 100 mls @ 33.333 mls/hr IVPB Q12HR [facility] Last Admin: 10/20/22 10:02 Dose: 33.333 mls/hr Sodium Bicarbonate 150 ml/ (Dextrose/Water) 1,150 mls @ 80 mls/hr IV .[id number] [facility] Last Admin: 10/20/22 05:32 Dose: 80 mls/hr Lactobacillus Acidoph/Bulgaricus (Lactobacillus Acidoph & Bulgar 1 Each Packet) 1 each PO DAILY [facility] Last Admin: 10/20/22 10:02 Dose: 1 each Magnesium Oxide (Magnesium Oxide 400 Mg Tab) 400 mg PO BID [facility] Last Admin: 10/20/22 10:02 Dose: 400 mg Midodrine (Midodrine 5 Mg Tab) 10 mg PO AC-TID [facility] Last Admin: 10/20/22 12:20 Dose: 10 mg Multi-Ingred Cream/Lotion/Oil/Oint (Hydrophilic Cream 180 Gm Tube) 1 applic TOPICAL DAILY [facility]; Protocol Last Admin: 10/19/22 14:55 Dose: 1 applic Multivit/Ca Carb/B Cmplx/FA/Prenat (Folic Acid-Vit B Complex-Vit C 1 Cap) 1 each PO DAILY [facility] Last Admin: 10/20/22 10:01 Dose: 1 each Naloxone HCl (Naloxone 0.4 Mg/Ml 1 Ml Vial) 0.2 mg IV Q2M PRN PRN Reason: Opioid Reversal Pantoprazole Sodium (Pantoprazole 40 Mg Tablet) 40 mg PO AC-BRKFST [facility] Last Admin: 10/20/22 06:28 Dose: 40 mg Physical examination: VITAL SIGNS: 97.5, 56, 16, 87/55, 96% room air GENERAL: Reclining, awake EYES: Pupils equal. Conjunctiva normal. HEENT: External appearance of nose and ears normal, oral cavity grossly normal. NECK: JVD not raised; masses not palpable. HEART: First and second heart sounds are normal; no edema. LUNGS:[ Respiratory rate normal; decreased breath sounds. ABDOMEN: Soft, nontender, liver spleen not palpable, no masses palpable. Colostomy bag. Bilateral nephrostomy tube PSYCH: Answering simple questions MUSCULOSKELETAL:No Clubbing/cyanosis;muscles-grossly intact. OA INVESTIGATIONS, reviewed in the clinical context: Blood culture [October 17] gram-negative bacilli October 20: Potassium 4.3 BUN 63 creatinine 4.2 to October 19: Potassium 4.3 BUN 58 creatinine 3.6 to bicarbonate 13 UA: Protein 3+ leukoesterase WBC October 18: Potassium 4.3 BUN 50 creatinine 2.9 to magnesium 0.8 WBC 25.4 hemoglobin 11.6 platelets 366 sodium 134 potassium 4.8 BUN 45 creatinine 2.84 Lactic acid 4.4 Magnesium 0.7 albumin 2.3 EKG tracing personally reviewed by me-possible multifocal atrial tachycardia with PVC Chest x-ray film personally reviewed by me-unremarkable CT abdomen and pelvis without contrast: Moderate to severe left-sided hydron ephrosis improved to prior exam. Last status post continues nephrostomy tube is.. Right kidney: Mild to moderate right-sided height 2. Hydronephrosis. Unchanged. Assessment and plan: -sepsis likely secondary to UTI. Blood cultures positive for gram-negative bacilli IV meropenem. -left nephrostomy tubes, with moderate to severe left-sided hydronephrosis. Decreased urine output.: Worsening Getting a nephrostogram today, may need replacement of nephrostomy tube -Acute metabolic acidosis: This not improving IV bicarbonate drip -Significant cognitive impairment -Chronic medical debility, patient is nonambulatory -Hypotension possibly combination off sepsis and poor oral intake Stop Zestril. Stop Lasix. IV fluids -Hyperlipidemia Lipitor -Significant hypotension Midodrine -GERD PPI -Acute kidney injury with no prior labs available for comparison. Possibly ATN from hypotension. Element of obstructive uropathy. With bilateral hydronephrosis. Decreased urine output. Follow with nephrology -Lactic acidosis multifactorial -Metabolic acidosis probably from kidney disease -Sacral decub's wound. Stage I pressure ulcer Wound care -DO NOT RESUSCITATE Nephrostogram today with a view to possible change of nephrostomy tube. Worsening creatinine. Continue with IV meropenem. Worsening creatinine.
--- NOTE | 2022-10-20 14:09 | P.PN ---
Subjective Progress Note Date: 10/20/22 Principal diagnosis: ESBL E. coli bacteremia Patient is a 81-year-old male with multiple comorbidities was brought into the ER for evaluation of decreased urine output and abdominal pain patient did have a history of bilateral hydronephrosis and did have a left-sided ne phrostomy tube placement, patient noticed to have a positive blood culture with ESBL E. coli that has prompted this infectious disease consultation On today's evaluation had that is 10/20/2022, the patient is afebrile, the patient is breathing comfortably on room air currently satting 96% denies having any chest pain or shortness of breath or cough did have some vague abdominal pain nausea but no vomiting or diarrhea reported Objective - Vital Signs Vital signs: Vital Signs Temp 97.5 F L 10/20/22 12:04 Pulse 81 10/20/22 12:04 Resp 16 10/20/22 12:04 BP 81/45 10/20/22 12:04 Pulse Ox 98 10/20/22 12:04 FiO2 Intake & Output 10/19/22 10/20/22 10/20/22 18:59 06:59 18:59 Intake Total 460 250 70 Output Total 300 25 Balance 160 250 45 Weight 104 kg Intake: IV 70 Oral 460 250 Output: Urine 25 Post Void Residual 0 Stool 300 Other: Voiding Method Diaper Diaper Diaper Incontinent Incontinent Incontinent - Exam GENERAL DESCRIPTION: An elderly male lying in bed in no distress RESPIRATORY SYSTEM: Unlabored breathing , decreased breath sounds at bases HEART: S1 S2 regular rate and rhythm , ABDOMEN: Soft , no tenderness EXTREMITIES: No edema feet - Labs CBC & Chem 7: 10/17/22 12:02 10/20/22 12:03 Labs: Abnormal Lab Results - Last 24 Hours (Table) 10/19/22 10/19/22 10/19/22 Range/Units 12:14 16:24 20:04 Sodium 136 L (137-145) mmol/L Chloride 109 H (98-107) mmol/L Carbon Dioxide 13 L (22-30) mmol/L BUN 58 H (9-20) mg/dL Creatinine 3.62 H (0.66-1.25) mg/dL Glucose 106 H (74-99) mg/dL POC Glucose (mg/dL) 181 H 146 H (70-110) mg/dL Calcium 7.2 L (8.4-10.2) mg/dL 10/20/22 10/20/22 Range/Units 06: 12:04 Sodium (137-145) mmol/L Chloride (98-107) mmol/L Carbon Dioxide (22-30) mmol/L BUN (9-20) mg/dL Creatinine (0.66-1.25) mg/dL Glucose (74-99) mg/dL POC Glucose (mg/dL) 138 H 148 H (70-110) mg/dL Calcium (8.4-10.2) mg/dL Microbiology - Last 24 Hours (Table) 10/17/22 11:48 Blood Culture - Preliminary Blood 10/17/22 11:56 Blood Culture Gram Stain - Preliminary Blood Blood Culture - Preliminary Gram Neg Bacilli Assessment and Plan (1) ESBL (extended spectrum beta-lactamase) producing bacteria infection Current Visit: Yes Status: Acute Code(s): A49.9 - BACTERIAL INFECTION, UNSPECIFIED; Z16.12 - EXTENDED SPECTRUM BETA LACTAMASE (ESBL) RESISTANCE SNOMED Code(s): 891154450 (2) UTI (urinary tract infection) Current Visit: Yes Status: Acute Code(s): N39.0 - URINARY TRACT INFECTION, SITE NOT SPECIFIED SNOMED Code(s): 75788163 Plan: 1patient with a ESBL E. coli bacteremia source is likely urinary in this patient who did have a complicated history with bilateral hydroureteronephrosis and did have a nephrostomy tube on the left side and it shows overall im provement on this CAT scan done this admission however did have persistent hydroureteronephrosis on the right side which is being managed by the urology team and recommending no intervention at this point 2-blood cultures has been repeated to document clearance of bacteremia 3-patient to continue meropenem 1 g every 24 dose has been adjusted to the kidney function Questions concerned were answered Time with Patient: Less than 30
--- NOTE | 2022-10-20 15:35 | P.PN ---
Subjective Progress Note Date: 10/20/22 I am seeing this patient in new consultation today 10/18/2022 on the cardiac stepdown floor for possible UTI. Patient is an 81-year-old male who is debilitated, and currently lives with his son. Patient is a poor historian, this HPI is supplemented with the chart and information provided from his son. Patient apparently has a history of recent kidney stone and sepsis resulting in left nephrostomy tube back in February 2022 at [facility]. Patient reportedly went to rehab after this, and has never fully recovered. The patient later had a heart attack and was on the mechanical ventilator for about 10 days. During this admission at [facility], he reportedly had 2 episodes of cardiac arrest. He reportedly had acute kidney injury and had temporary hemodialysis as well. He also has a remote history of colon cancer status post colectomy and ileostomy, slurred speech after his last cardiac arrest, and is an ex-smoker. No reported lung history, and he does not follow with [facility]. Patient's son says that he is mostly bedbound at home. He has been experiencing reduced appetite, nausea and vomiting, left-sided abdominal pain, reduced nephrostomy tube output, and penile discharge that started approximately 24 hours ago. This prompted the patient to come to the emergency room yesterday afternoon. 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 Patient is currently resting in bed, on room air, in no acute distress. He denies any dysuria, frequency, hematuria. He still voids, and is incontinent of urine. No urine output seen in the nephrostomy pouch. There appears to be a small amount of purulent fluid. He does report left-sided abdominal and flank pain. No significant CVA tenderness. There is a functional ileostomy with brown output. Denies bloody bowel movements. Chest x-ray on arrival showed no active cardiopulmonary disease. CBC on arrival shows some leukocytosis with a WBC count of 25.4, hemoglobin 11.6, hematocrit 38, platelets 366. BMP shows sodium 134, potassium 4.8, chloride 103, serum CO2 18, BUN 45, creatinine 2.84, glucose 142. Lactic acid level wasn't elevated at 4.6 and is down to 2.6. Patient has received a total of 2.5 L normal saline bolus. Has received 2 doses of Rocephin. Is currently afebrile. Vital signs are stable. The patient is seen today 10/19/2022 in follow-up on the selective care unit. He is currently sitting up in a chair at the bedside. Awake and alert in no acute distress. He is maintaining O2 saturations in the 90s on room air. He currently is on a bicarb drip at 80 MLS per hour. Antibiotics in the form of meropenem. Blood culture positive for gram-negative bacilli. INR 1.1. Sodium 136. Potassium 4.3. Bicarb 13. BUN 58. Creatinine 3.62. Glucose 106. He is currently maintaining good O2 saturations in the 90s on room air. He's been afebrile. Hemodynamically stable. The patient is seen today 10/20/2022 in follow-up on the selective care unit. He is currently resting comfortably in bed. Awake and alert in no acute distress. He is maintaining O2 saturations in the 90s on room air. He did undergo a left nephrostomy tube exchange. Blood culture is positive for E. coli. Sodium 135. Potassium 4.3. Bicarb 19. BUN 63. Creatinine 4.22. Glucose 147. He is continued on meropenem. Objective - Vital Signs Vital signs: Vital Signs Temp 97.5 F L 10/20/22 12:04 Pulse 81 10/20/22 12:04 Resp 16 10/20/22 12:04 BP 81/45 10/20/22 12:04 Pulse Ox 98 10/20/22 12:04 FiO2 Intake & Output 10/19/22 10/20/22 10/20/22 18:59 06:59 18:59 Intake Total 460 250 70 Output Total 300 25 Balance 160 250 45 Weight 104 kg Intake: IV 70 Oral 460 250 Output: Urine 25 Post Void Residual 0 Stool 300 Other: Voiding Method Diaper Diaper Diaper Incontinent Incontinent Incontinent - Exam GENERAL EXAM: Alert, 81-year-old male, sitting up in bed, on room air, comfortable in no apparent distress. HEAD: Normocephalic and atraumatic EYES: Normal reaction of pupils, equal size. NOSE: Clear with pink turbinates. THROAT: No erythema or exudates. NECK: No masses, no JVD. CHEST: No chest wall deformity. LUNGS: Equal air entry with no crackles, wheeze, rhonchi or dullness. No c onversational dyspnea or accessory muscle use.. CVS: S1 and S2 normal with no audible murmur, regular rhythm. No extra heart sounds ABDOMEN: No hepatosplenomegaly, active bowel sounds, no guarding or rigidity. Left-sided nephrostomy tube without urine and small amount of purulent drainage. No significant CVA tenderness. There is a functional ileostomy with brown output SPINE: No scoliosis or deformity SKIN: No rashes CENTRAL NERVOUS SYSTEM: No focal deficits, tone is normal in all 4 extremities. Dysarthria and slurred speech EXTREMITIES: There is bilateral lower extremity 2+ edema. No clubbing, or cyanosis. Peripheral pulses are intact. Left foot drop - Labs CBC & Chem 7: 10/17/22 12:02 10/20/22 12:03 Labs: Abnormal Lab Results - Last 24 Hours (Table) 10/19/22 10/19/22 10/20/22 Range/Units 16:24 20:04 06:23 Sodium (137-145) mmol/L Carbon Dioxide (22-30) mmol/L BUN (9-20) mg/dL Creatinine (0.66-1.25) mg/dL Glucose (74-99) mg/dL POC Glucose (mg/dL) 181 H 146 H 138 H (70-110) mg/dL Calcium (8.4-10.2) mg/dL 10/20/22 10/20/22 Range/Units 12:03 12:04 Sodium 135 L (137-145) mmol/L Carbon Dioxide 19 L (22-30) mmol/L BUN 63 H (9-20) mg/dL Creatinine 4.22 H (0.66-1.25) mg/dL Glucose 147 H (74-99) mg/dL POC Glucose (mg/dL) 148 H (70-110) mg/dL Calcium 7.6 L (8.4-10.2) mg/dL Microbiology - Last 24 Hours (Table) 10/17/22 11:56 Blood Culture Gram Stain - Final Blood Blood Culture - Final Escherichia coli 10/17/22 11:48 Blood Culture - Preliminary Blood Assessment and Plan Assessment: Possible UTI, however, no urinalysis or urine cultures have been collected. Patient's left nephrostomy has been nonfunctional for the last [address] of the abdomen pelvis actually shows improvement of the patient's previous moderate to severe left-sided hydronephrosis from prior exam. There is a small focus of air within the renal pelvis. There is stable mild to moderate right-sided hydroureter nephrosis. Bacteremia secondary to E. coli Leukocytosis secondary to above History of kidney stone and urosepsis resulting in left nephrostomy. Left nephrostomy tube exchanged on 10/20/2022. Acute on chronic kidney disease. Currently 4.22, previous history of temporary dialysis Lactic acidosis, improving History of colon cancer status post colectomy and ileostomy. 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 History of cardiac arrest, resulting in prolonged mechanical ventilation Ex-smoker Plan: The patient was seen and evaluated Microbiology, labs and medications reviewed Currently on meropenem Continue bicarb drip Nephrology is following May require a right nephrostomy tube placement. May require dialysis Currently stable and on room air We will see as needed I have personally seen and examined the patient, performed the documentation and the assessment and plan as written. Number of minutes spent on the visit: 10.
[2022-10-20] MEDS: HYDROPHILIC CREAM 180 GM TUBE TOPICAL SCH (16:13)
[2022-10-20 17:04] LABS: Glucose,Whole Blood 158 mg/dL (70-110)
[2022-10-20 20:00] LABS: Glucose,Whole Blood 150 mg/dL (70-110)
[2022-10-20] MEDS: ACETAMINOPHEN TAB 325 MG TAB PO PRN (21:02)
[2022-10-21 06:26] LABS: Glucose,Whole Blood 153 mg/dL (70-110)
[2022-10-21] MEDS: DEXTROSE 5% IN WATER 1,000 ML with SODIUM BICARB (1 MEQ/ML) 150 ML IV SCH ×2 (07:07→17:28)
[2022-10-21] MEDS: MEROPENEM 1 GM in SODIUM CHLORIDE 0.9% 100 ML IVPB SCH ×2 (09:01→21:55)
[2022-10-21] MEDS: droNABinol 2.5 MG CAP PO SCH ×2 (09:02→17:27)
[2022-10-21] MEDS: MAGNESIUM OXIDE 400 MG TAB PO SCH ×2 (09:02→21:55)
[2022-10-21] MEDS: CYANOCOBALAMIN 500 MCG TAB PO SCH (09:02)
[2022-10-21] MEDS: MIDODRINE 5 MG TAB PO SCH ×3 (09:02→17:27)
[2022-10-21] MEDS: allopurinoL 100 MG TAB PO SCH (09:02)
[2022-10-21] MEDS: PANTOPRAZOLE 40 MG TABLET PO SCH (09:02)
[2022-10-21] MEDS: ATORVASTATIN 20 MG TAB PO SCH (09:02)
[2022-10-21] MEDS: HYDROPHILIC CREAM 180 GM TUBE TOPICAL SCH (09:03)
[2022-10-21] MEDS: FOLIC ACID-VIT B COMPLEX-VIT C 1 CAP PO SCH (09:03)
[2022-10-21] MEDS: LACTOBACILLUS ACIDOPH & BULGAR 1 EACH PACKET PO SCH (09:07)
[2022-10-21 11:49] LABS: Glucose,Whole Blood 193 mg/dL (70-110)
[2022-10-21 13:18] LABS: Anisocytosis Slight; Basophils % (A) 0 %; Eosinophils # (A) 0.1 k/uL (0-0.7); Eosinophils % (A) 1 %; HCT 34.5 % (39.0-53.0); HGB 10.8 gm/dL (13.0-17.5); Hypochromasia Slight; Lymphocytes # (A) 0.7 k/uL (1.0-4.8); Lymphocytes % (A) 6 %; MCH 28.1 pg (25.0-35.0); MCHC 31.4 g/dL (31.0-37.0); MCV 89.6 fL (80.0-100.0); Mean Platelet Volume 9.6; Monocytes # (A) 0.4 k/uL (0-1.0); Monocytes % (A) 3 %; Neutrophils # (A) 10.3 k/uL (1.3-7.7); Neutrophils % (A) 89 %; RBC 3.85 m/uL (4.30-5.90); RDW 17.1 % (11.5-15.5); WBC 11.6 k/uL (3.8-10.6)
[2022-10-21 13:21] LABS: Platelet Count 115 k/uL (150-450)
[2022-10-21 13:51] LABS: ALT 12 U/L (4-49); AST 17 U/L (17-59); Albumin 1.9 g/dL (3.5-5.0); Alkaline Phosphatase 110 U/L (38-126); Anion Gap 11 mmol/L; Blood Urea Nitrogen 65 mg/dL (9-20); Calcium 7.7 mg/dL (8.4-10.2); Carbon Dioxide 20 mmol/L (22-30); Chloride 103 mmol/L (98-107); Glucose 126 mg/dL (74-99); Magnesium 1.9 mg/dL (1.6-2.3); Potassium 4.1 mmol/L (3.5-5.1); Sodium 134 mmol/L (137-145); Total Bilirubin 0.2 mg/dL (0.2-1.3)
[2022-10-21 13:57] LABS: African American GFR (CKD) 14 (>60 ml/min/1.73 sqM); Non-African American GFR(CKD) 12 (>60 ml/min/1.73 sqM)
--- NOTE | 2022-10-21 15:55 | P.PN ---
Progress Note - Text Progress Note Date: 10/21/22 Chief Complaint: Decreased urine output and abdominal pain 81-year-old patient who follows with visiting physicians Dr. diaz. Patient is a limited historian. As per the ER physician patient's. [facility] Has a percutaneous nephrostomy tube. Also has a colostomy. Patient is not sure why he is in the ER. But he was apparently sent in for decreased urine output and some abdominal pain. Patient denies abdominal pain. Has decreased output. Denies any fever and chills. Has not walked for about 2 months. No nausea vomiting. Patient was hypotensive in the ER. Given IV fluids. IV ceftriaxone. Concern about sepsis. No fever recorded. Has a sacral decubitus ulcer Admitted with possible sepsis. Source unclear. Decreased urine output. Hypotension. October 18: Reclining in bed. Decreased appetite. We'll have the patient have assisted feeding. Blood cultures pending. October 19: Laying in bed. Not eating. Not hungry. Marinol added. IV meropenem. Blood cultures growing gram-negative bacilli. Sodium bicarbonate drip started for acidosis October 20: Patient slightly decreased urine output to the nephrostomy tube. Today nephrostogram being carried out by urology. May need to change to 2. Maintenance IV meropenem. IV bicarbonate drip. Decreased appetite October 21: Patient underwent nephrostogram yesterday in the nephrostomy tube was changed.. Patient's creatinine seems to have platelet off. Patient did eat some. Tired. Active Medications Acetaminophen (Acetaminophen Tab 325 Mg Tab) 650 mg PO Q6HR PRN PRN Reason: Mild Pain or Fever > 100.5 Last Admin: 10/20/22 21:02 Dose: 650 mg Allopurinol (Allopurinol 100 Mg Tab) 100 mg PO DAILY [facility] Last Admin: 10/21/22 09:02 Dose: 100 mg Atorvastatin Calcium (Atorvastatin 20 Mg Tab) 20 mg PO DAILY [facility] Last Admin: 10/21/22 09:02 Dose: 20 mg Cyanocobalamin (Cyanocobalamin 500 Mcg Tab) 1,000 mcg PO DAILY [facility] Last Admin: 10/21/22 09:02 Dose: 1,000 mcg Dronabinol (Dronabinol 2.5 Mg Cap) 2.5 mg PO AC-BID [facility] Last Admin: 10/21/22 09:02 Dose: 2.5 mg Meropenem 1 gm/ Sodium (Chloride) 100 mls @ 33.333 mls/hr IVPB Q12HR [facility] Last Admin: 10/21/22 09:01 Dose: 33.333 mls/hr Sodium Bicarbonate 150 ml/ (Dextrose/Water) 1,150 mls @ 80 mls/hr IV .[id number] [facility] Last Admin: 10/21/22 07:07 Dose: 80 mls/hr Lactobacillus Acidoph/Bulgaricus (Lactobacillus Acidoph & Bulgar 1 Each Packet) 1 each PO DAILY [facility] Last Admin: 10/21/22 09:07 Dose: Not Given Magnesium Oxide (Magnesium Oxide 400 Mg Tab) 400 mg PO BID [facility] Last Admin: 10/21/22 09:02 Dose: 400 mg Midodrine (Midodrine 5 Mg Tab) 10 mg PO AC-TID [facility] Last Admin: 10/21/22 12:00 Dose: 10 mg Multi-Ingred Cream/Lotion/Oil/Oint (Hydrophilic Cream 180 Gm Tube) 1 applic TOPICAL DAILY [facility]; Protocol Last Admin: 10/21/22 09:03 Dose: 1 applic Multivit/Ca Carb/B Cmplx/FA/Prenat (Folic Acid-Vit B Complex-Vit C 1 Cap) 1 each PO DAILY [facility] Last Admin: 10/21/22 09:03 Dose: 1 each Naloxone HCl (Naloxone 0.4 Mg/Ml 1 Ml Vial) 0.2 mg IV Q2M PRN PRN Reason: Opioid Reversal Pantoprazole Sodium (Pantoprazole 40 Mg Tablet) 40 mg PO AC-BRKFST [facility] Last Admin: 10/21/22 09:02 Dose: 40 mg Physical examination: VITAL SIGNS: 97.5, 60, 16, 71/33, 92% room air GENERAL: Reclining, awake EYES: Pupils equal. Conjunctiva normal. HEENT: External appearance of nose and ears normal, oral cavity grossly normal. NECK: JVD not raised; masses not palpable. HEART: First and second heart sounds are normal; no edema. LUNGS:[ Respiratory rate normal; decreased breath sounds. ABDOMEN: Soft, nontender, liver spleen not palpable, no masses palpable. Colostomy bag. Left-sided nephrostomy tube PSYCH: Answering simple questions MUSCULOSKELETAL:No Clubbing/cyanosis;muscles-grossly intact. OA INVESTIGATIONS, reviewed in the clinical context: October 21: White count 11.6 hemoglobin 10.8 platelets 115 potassium 4.1 BUN 65 creatinine 4.29. Albumin 1.9 Blood culture [October 17] E. coli October 20: Potassium 4.3 BUN 63 creatinine 4.2 to October 19: Potassium 4.3 BUN 58 creatinine 3.6 to bicarbonate 13 UA: Protein 3+ leukoesterase WBC October 18: Potassium 4.3 BUN 50 creatinine 2.9 to magnesium 0.8 WBC 25.4 hemoglobin 11.6 platelets 366 sodium 134 potassium 4.8 BUN 45 creatinine 2.84 Lactic acid 4.4 Magnesium 0.7 albumin 2.3 EKG tracing personally reviewed by me-possible multifocal atrial tachycardia with PVC Chest x-ray film personally reviewed by me-unremarkable CT abdomen and pelvis without contrast: Moderate to severe left-sided hydronephrosis improved to prior exam. Last status post continues nephrostomy tube is.. Right kidney: Mild to moderate right-sided height 2. Hydronephrosis. Unchanged. Assessment and plan: -sepsis likely secondary to UTI/pyelonephritis. Blood cultures positive for E. coli IV meropenem. -left nephrostomy tubes, with moderate to severe left-sided hydronephrosis. Decreased urine output.: Worsening Nephrostomy tube was replaced on October 20. -Acute metabolic acidosis: improving IV bicarbonate drip continues -Significant cognitive impairment -Chronic medical debility, patient is nonambulatory -Hypotension possibly combination off sepsis and poor oral intake Stop Zestril. Stop Lasix. IV fluids -Hyperlipidemia Lipitor -Significant hypotension Midodrine -GERD PPI -Acute kidney injury with no prior labs available for comparison. Possibly ATN from hypotension. Element of obstructive uropathy. With bilateral hydronephros is. Decreased urine output. : Slow to respond Follow with nephrology -Lactic acidosis multifactorial -Metabolic acidosis probably from kidney disease -Sacral decub's wound. Stage I pressure ulcer Wound care -DO NOT RESUSCITATE Nephrostomy tube was changed yesterday. Patient on IV meropenem. Repeat blood cultures ordered. Sodium bicarbonate drip. Prognosis guarded.
[2022-10-21 16:38] LABS: Glucose,Whole Blood 154 mg/dL (70-110)
--- NOTE | 2022-10-21 18:03 | P.PN ---
Subjective Patient is seen for follow-up for advanced renal failure with history of bilateral hydronephrosis status post left nephrostomy tube placement and pe rsistent right hydronephrosis. Patient has been hypotensive and has not had much urine output in the bladder or from the left nephrostomy tube. The left PCN was exchanged it has had about 150ml of urine. Mentation is better from admission. Blood pressure remains low. Maintained on midodrine. Blood cxc growing E coli No nausea vomiting or abdominal pain. Serum creatinine staying at 4.2 Objective - Vital Signs Vital signs: Vital Signs Temp 97.5 F L 10/21/22 08:00 Pulse 53 L 10/21/22 16:00 Resp 16 10/21/22 14:00 BP 86/54 10/21/22 16:00 Pulse Ox 92 L 10/21/22 16:00 FiO2 Intake & Output 10/20/22 10/21/22 10/21/22 18:59 06:59 18:59 Intake Total 70 480 Output Total 25 300 100 Balance 45 -300 380 Intake: IV 70 Oral 480 Output: Urine 25 100 50 Stool 200 50 Other: Voiding Method Diaper Diaper Diaper Incontinent Incontinent Incontinent - Exam Patient is awake, comfortable, no acute distress Examination of the heart S1 and S2 Examination the lungs bilateral breath sounds are heard Abdomen is soft nontender, ileostomy Examination of the lower extremities shows 1+ edema mostly in the ankles [employer] exam shows patient is moving all 4 extremities. - Labs CBC & Chem 7: 10/21/22 12:39 10/21/22 12:39 Labs: Abnormal Lab Results - Last 24 Hours (Table) 10/20/22 10/21/22 10/21/22 Range/Units 19:58 06:24 11:47 WBC (3.8-10.6) k/uL RBC (4.30-5.90) m/uL Hgb (13.0-17.5) gm/dL Hct (39.0-53.0) % RDW (11.5-15.5) % Plt Count (150-450) k/uL Neutrophils # (1.3-7.7) k/uL Lymphocytes # (1.0-4.8) k/uL Sodium (137-145) mmol/L Carbon Dioxide (22-30) mmol/L BUN (9-20) mg/dL Creatinine (0.66-1.25) mg/dL Glucose (74-99) mg/dL POC Glucose (mg/dL) 150 H 153 H 193 H (70-110) mg/dL Calcium (8.4-10.2) mg/dL Total Protein (6.3-8.2) g/dL Albumin (3.5-5.0) g/dL 10/21/22 10/21/22 10/21/22 Range/Units 12:39 12:39 16:36 WBC 11.6 H (3.8-10.6) k/uL RBC 3.85 L (4.30-5.90) m/uL Hgb 10.8 L (13.0-17.5) gm/dL Hct 34.5 L (39.0-53.0) % RDW 17.1 H (11.5-15.5) % Plt Count 115 L D (150-450) k/uL Neutrophils # 10.3 H (1.3-7.7) k/uL Lymphocytes # 0.7 L (1.0-4.8) k/uL Sodium 134 L (137-145) mmol/L Carbon Dioxide 20 L (22-30) mmol/L BUN 65 H (9-20) mg/dL Creatinine 4.29 H (0.66-1.25) mg/dL Glucose 126 H (74-99) mg/dL POC Glucose (mg/dL) 154 H (70-110) mg/dL Calcium 7.7 L (8.4-10.2) mg/dL Total Protein 4.0 L (6.3-8.2) g/dL Albumin 1.9 L (3.5-5.0) g/dL Microbiology - Last 24 Hours (Table) 10/18/22 10:40 Urine Culture - Final Urine,Clean Catch 10/17/22 11:48 Blood Culture - Preliminary Blood 10/17/22 11:56 Blood Culture Gram Stain - Final Blood Blood Culture - Final Escherichia coli Assessment and Plan Assessment: 1. Acute kidney injury with no previous labs available for comparison. Most likely ATN with underlying hypotension as well as component of Obstructive uropathy and bilateral hydronephrosis with improvement in hydronephrosis on the left side. Right hydronephrosis persists. PCN was exchanged on 10/20/22 with output at 150ml. Blood pressure remains low and patient is maintained on midodrine.. 2. Lactic acidosis status post IV fluids, improved 3. History of acute kidney injury needing temporary dialysis previously, details not known 4. Metabolic acidosis associated with lactic acidosis and acute kidney injury 5. History of recent cardiac arrest at hospitalization at [facility] in [place] 6. Sepsis with blood cultures growing gram-negative bacilli 7. Non-gap metabolic acidosis secondary to acute kidney injury 8. Hypomagnesemia status post replacement Plan: Repeat labs today in a.m. Continue with midodrine Continue with IV bicarb drip If patient's renal function continues to worsen with no improvement in urine output we will proceed with right nephrostomy tube placement. He may eventually need to be restarted on dialysis. Patient is agreeable.
[2022-10-21 20:20] LABS: Glucose,Whole Blood 151 mg/dL (70-110)
[2022-10-21] MEDS: ACETAMINOPHEN TAB 325 MG TAB PO PRN (21:55)
--- NOTE | 2022-10-21 22:05 | P.PN ---
Subjective Progress Note Date: 10/21/22 Principal diagnosis: ESBL E. coli bacteremia Patient is a 81-year-old male with multiple comorbidities was brought into the ER for evaluation of decreased urine output and abdominal pain patient did have a history of bilateral hydronephrosis and did have a left-sided ne phrostomy tube placement, patient noticed to have a positive blood culture with ESBL E. coli that has prompted this infectious disease consultation On today's evaluation had that is 10/21/2022, the patient remains to be afebrile, the patient is breathing comfortably on room air, the patient denies h aving any chest pain or shortness of breath or cough patient had been complaining of some right-sided abdominal pain however no worsening, did have some nausea but no vomiting or diarrhea reported Objective - Vital Signs Vital signs: Vital Signs Temp 97.5 F L 10/21/22 08:00 Pulse 83 10/21/22 12:00 Resp 16 10/21/22 08:00 BP 85/53 10/21/22 12:00 Pulse Ox 96 10/21/22 12:00 FiO2 Intake & Output 10/20/22 10/21/22 10/21/22 18:59 06:59 18:59 Intake Total 70 480 Output Total 25 300 100 Balance 45 -300 380 Intake: IV 70 Oral 480 Output: Urine 25 100 50 Stool 200 50 Other: Voiding Method Diaper Diaper Diaper Incontinent Incontinent Incontinent - Exam GENERAL DESCRIPTION: An elderly male lying in bed in no distress RESPIRATORY SYSTEM: Unlabored breathing , decreased breath sounds at bases HEART: S1 S2 regular rate and rhythm , ABDOMEN: Soft , no tenderness EXTREMITIES: No edema feet - Labs CBC & Chem 7: 10/21/22 12:39 10/21/22 12:39 Labs: Abnormal Lab Results - Last 24 Hours (Table) 10/20/22 10/20/22 10/20/22 Range/Units 12:03 17:02 19:58 Sodium 135 L (137-145) mmol/L Carbon Dioxide 19 L (22-30) mmol/L BUN 63 H (9-20) mg/dL Creatinine 4.22 H (0.66-1.25) mg/dL Glucose 147 H (74-99) mg/dL POC Glucose (mg/dL) 158 H 150 H (70-110) mg/dL Calcium 7.6 L (8.4-10.2) mg/dL 10/21/22 10/21/22 Range/Units 06:24 11:47 Sodium (137-145) mmol/L Carbon Dioxide (22-30) mmol/L BUN (9-20) mg/dL Creatinine (0.66-1.25) mg/dL Glucose (74-99) mg/dL POC Glucose (mg/dL) 153 H 193 H (70-110) mg/dL Calcium (8.4-10.2) mg/dL Microbiology - Last 24 Hours (Table) 10/17/22 11:48 Blood Culture - Preliminary Blood 10/17/22 11:56 Blood Culture Gram Stain - Final Blood Blood Culture - Final Escherichia coli Assessment and Plan (1) ESBL (extended spectrum beta-lactamase) producing bacteria infection Current Visit: Yes Status: Acute Code(s): A49.9 - BACTERIAL INFECTION, UNSPECIFIED; Z16.12 - EXTENDED SPECTRUM BETA LACTAMASE (ESBL) RESISTANCE SNOMED Code(s): 593445948 (2) UTI (urinary tract infection) Current Visit: Yes Status: Acute Code(s): N39.0 - URINARY TRACT INFECTION, SITE NOT SPECIFIED SNOMED Code(s): 66232380 Plan: 1patient with a ESBL E. coli bacteremia source is likely urinary in this patien t who did have a complicated history with bilateral hydroureteronephrosis and did have a nephrostomy tube on the left side and it shows overall improvement on this CAT scan done this admission however did have persistent hydroureteronephrosis on the right side which is being managed by the urology t usha and recommending no intervention at this point 2-blood cultures has been repeated to document clearance of bacteremia and are currently pending 3-patient to continue meropenem 1 g every 24 dose has been adjusted to the kidney function, plan will be for midline and outpatient IV Invanz on discharge Time with Patient: Less than 30
[2022-10-22 06:06] LABS: Glucose,Whole Blood 134 mg/dL (70-110)
[2022-10-22] MEDS: CYANOCOBALAMIN 500 MCG TAB PO SCH ×2 (09:37→13:06)
[2022-10-22] MEDS: PANTOPRAZOLE 40 MG TABLET PO SCH ×2 (09:37→13:05)
[2022-10-22] MEDS: allopurinoL 100 MG TAB PO SCH ×2 (09:37→13:05)
[2022-10-22] MEDS: MAGNESIUM OXIDE 400 MG TAB PO SCH ×2 (09:37→13:06)
[2022-10-22] MEDS: droNABinol 2.5 MG CAP PO SCH ×3 (09:38→17:01)
[2022-10-22] MEDS: FOLIC ACID-VIT B COMPLEX-VIT C 1 CAP PO SCH ×2 (09:38→13:06)
[2022-10-22] MEDS: MIDODRINE 5 MG TAB PO SCH ×3 (09:38→17:00)
[2022-10-22] MEDS: ATORVASTATIN 20 MG TAB PO SCH ×2 (09:39→13:06)
[2022-10-22 10:15] LABS: Anion Gap 13 mmol/L; Blood Urea Nitrogen 71 mg/dL (9-20); Calcium 7.7 mg/dL (8.4-10.2); Carbon Dioxide 18 mmol/L (22-30); Chloride 102 mmol/L (98-107); Glucose 130 mg/dL (74-99); Potassium 4.1 mmol/L (3.5-5.1); Sodium 133 mmol/L (137-145)
[2022-10-22 10:22] LABS: African American GFR (CKD) 14 (>60 ml/min/1.73 sqM); Non-African American GFR(CKD) 12 (>60 ml/min/1.73 sqM)
--- NOTE | 2022-10-22 11:45 | P.PN ---
Subjective Patient is seen for follow-up for advanced renal failure with history of bilateral hydronephrosis status post left nephrostomy tube placement and pe rsistent right hydronephrosis. Patient has been hypotensive and has not had much urine output in the bladder or from the left nephrostomy tube. The left PCN was exchanged it has had about 150ml of urine. Mentation is better from admission. Blood pressure remains low. Maintained on midodrine. Blood cx growing E coli No nausea vomiting or abdominal pain. Serum creatinine staying at 4.2, increase to 4.3 today. Total urine output is 100 mL from the left nephrostomy tube. No other urine output. Patient has been refusing medications including midodrine. Objective - Vital Signs Vital signs: Vital Signs Temp 97.6 F 10/22/22 09:35 Pulse 74 10/22/22 09:35 Resp 18 10/22/22 09:35 BP 87/53 10/22/22 09:35 Pulse Ox 94 L 10/22/22 09:35 FiO2 Intake & Output 10/21/22 10/22/22 10/22/22 18:59 06:59 18:59 Intake Total 480 Output Total 100 125 Balance 380 -125 Intake: Oral 480 Output: Urine 50 50 Stool 50 75 Other: Voiding Method Diaper Diaper Diaper Incontinent Incontinent Incontinent - Exam Patient is awake, comfortable, no acute distress Examination of the heart S1 and S2 Examination the lungs bilateral breath sounds are heard Abdomen is soft nontender, ileostomy Examination of the lower extremities shows 1+ edema [employer] exam shows patient is moving all 4 extremities. - Labs CBC & Chem 7: 10/21/22 12:39 10/22/22 08:30 Labs: Abnormal Lab Results - Last 24 Hours (Table) 10/21/22 10/21/22 10/21/22 Range/Units 11:47 12:39 12:39 WBC 11.6 H (3.8-10.6) k/uL RBC 3.85 L (4.30-5.90) m/uL Hgb 10.8 L (13.0-17.5) gm/dL Hct 34.5 L (39.0-53.0) % RDW 17.1 H (11.5-15.5) % Plt Count 115 L D (150-450) k/uL Neutrophils # 10.3 H (1.3-7.7) k/uL Lymphocytes # 0.7 L (1.0-4.8) k/uL Sodium 134 L (137-145) mmol/L Carbon Dioxide 20 L (22-30) mmol/L BUN 65 H (9-20) mg/dL Creatinine 4.29 H (0.66-1.25) mg/dL Glucose 126 H (74-99) mg/dL POC Glucose (mg/dL) 193 H (70-110) mg/dL Calcium 7.7 L (8.4-10.2) mg/dL Total Protein 4.0 L (6.3-8.2) g/dL Albumin 1.9 L (3.5-5.0) g/dL 10/21/22 10/21/22 10/22/22 Range/Units 16:36 20:18 06:05 WBC (3.8-10.6) k/uL RBC (4.30-5.90) m/uL Hgb (13.0-17.5) gm/dL Hct (39.0-53.0) % RDW (11.5-15.5) % Plt Count (150-450) k/uL Neutrophils # (1.3-7.7) k/uL Lymphocytes # (1.0-4.8) k/uL Sodium (137-145) mmol/L Carbon Dioxide (22-30) mmol/L BUN (9-20) mg/dL Creatinine (0.66-1.25) mg/dL Glucose (74-99) mg/dL POC Glucose (mg/dL) 154 H 151 H 134 H (70-110) mg/dL Calcium (8.4-10.2) mg/dL Total Protein (6.3-8.2) g/dL Albumin (3.5-5.0) g/dL 10/22/22 Range/Units 08:30 WBC (3.8-10.6) k/uL RBC (4.30-5.90) m/uL Hgb (13.0-17.5) gm/dL Hct (39.0-53.0) % RDW (11.5-15.5) % Plt Count (150-450) k/uL Neutrophils # (1.3-7.7) k/uL Lymphocytes # (1.0-4.8) k/uL Sodium 133 L (137-145) mmol/L Carbon Dioxide 18 L (22-30) mmol/L BUN 71 H (9-20) mg/dL Creatinine 4.33 H (0.66-1.25) mg/dL Glucose 130 H (74-99) mg/dL POC Glucose (mg/dL) (70-110) mg/dL Calcium 7.7 L (8.4-10.2) mg/dL Total Protein (6.3-8.2) g/dL Albumin (3.5-5.0) g/dL Microbiology - Last 24 Hours (Table) 10/18/22 10:40 Urine Culture - Final Urine,Clean Catch Assessment and Plan Assessment: 1. Acute kidney injury with no previous labs available for comparison. Most likely ATN with underlying hypotension as well as component of Obstructive uropa thy and bilateral hydronephrosis with improvement in hydronephrosis on the left side. Right hydronephrosis persists. PCN was exchanged on 10/20/22 with output at 150ml. Blood pressure remains low and patient is maintained on midodrine. We will proceed with right nephrostomy tube if aggressive medical care is desired. Patient is not an ideal candidate for dialysis given the significantly low blood pressure. 2. Lactic acidosis status post IV fluids, improved 3. History of acute kidney injury needing temporary dialysis previously, details not known 4. Metabolic acidosis associated with lactic acidosis and acute kidney injury 5. History of recent cardiac arrest at hospitalization at [facility] in [place] 6. Sepsis with blood cultures growing gram-negative bacilli 7. Non-gap metabolic acidosis secondary to acute kidney injury 8. Hypomagnesemia status post replacement Plan: Proceed with a right nephrostomy tube placement if aggressive medical care is desired. Patient has been refusing medications. Need to consider hospice care. Patient is not an ideal candidate for dialysis given his significantly low blood pressures. Repeat blood cultures.
[2022-10-22 11:50] LABS: Glucose,Whole Blood 159 mg/dL (70-110)
--- NOTE | 2022-10-22 12:18 | CDI ---
Documentation Clarification Form Date: 10/22/2022 11:20:00 AM From: Shanda Granger RN, CCDS Admit Date: 10/17/2022 02:33:00 PM Patient Name: Chente Lua Visit Number: [id number] Discharge Date: ATTENTION: The Clinical Documentation Specialists (CDI) and [facility] Coding Staff appreciate your assistance in clarifying documentation. Please respond to the clarification below the line at the bottom and electronically sign. The CDI & [facility] Coding staff will review the response and follow-up if needed. Please note: Queries are made part of the Legal Health Record. If you have any questions, please contact the author of this message via ITS. Dr. Anibal Aguila UTI is documented in the ongoing progress note starting on 10/19/2022 and the patient presented with left-sided nephrostomy tubes. Additional clarification regarding the etiology of the UTI is requested. History/Risk Factors: Hyperlipidemia, GERD, Former smoker Clinical Indicators: 81-year-ld male has a left percutaneous nephrostomy tube. He has decreased output. Admitted with possible sepsis, ruled in for UTI. 10/17 VS on admission: 73/51 104 20 98.1 96 % RA 10/18 CT abdomen and pelvis w/o contrast: Moderate to severe left-sided hydronephrosis improved to prior exam. Small focus of air within the left renal pelvis. Mild perinephric stranding unchanged from prior study. No evidence for nephrolithiasis. 10/18 Right kidney: Mild to moderate right-sided hydroureteronephrosis persists and is essentially unchanged relative to the prior study. No evidence for nephrolithiasis or right renal mass. The urinary bladder continues to demonstrate wall thickening. 10/18 Urinalysis. Ur Leukocyte Esterase Large, Urine WBC >182 10/18 Urine culture: Specimen unsuitable/ Please re-submit. 10/17 Blood cultures Final: Escherichia coli 10/17 Lab results: WBC 25.4 Neutrophils 23.7, BUN 45, CR 2.84, Lactic acid 4.6, Mg+ 0.7 Treatment: 10/20 Left Nephrostomy exchange. Meropenem 1 GM IVPB Q 12 HRS 10/18 -10/21 Rocephin 2 GM IVPG Q 24 HRS 10/17- Monitor Urine output .9 NS IV Bolus x 3 10/17 Please clarify the etiology of the UTI, if known: [ ] UTI related to Nephrostomy tube [ X ] UTI not related to Nephrostomy tube [ ] Other condition, please specify [ ] Unable to determine (Template Last Revised: July 2020) MTDD
[2022-10-22] MEDS: LACTOBACILLUS ACIDOPH & BULGAR 1 EACH PACKET PO SCH (13:03)
--- NOTE | 2022-10-22 15:56 | P.PN ---
Subjective Progress Note Date: 10/22/22 Principal diagnosis: ESBL E. coli bacteremia Patient is a 81-year-old male with multiple comorbidities was brought into the ER for evaluation of decreased urine output and abdominal pain patient did have a history of bilateral hydronephrosis and did have a left-sided ne phrostomy tube placement, patient noticed to have a positive blood culture with ESBL E. coli that has prompted this infectious disease consultation On today's evaluation had that is 10/22/2022, the patient continues to be afebrile, the patient is breathing comfortably on room air, the patient denies chest pain or shortness of breath or cough patient had been complaining of some right-sided abdominal pain however denies any worsening, did have some nausea but no vomiting or diarrhea reported by the nursing staff Objective - Vital Signs Vital signs: Vital Signs Temp 97.6 F 10/22/22 09:35 Pulse 74 10/22/22 09:35 Resp 18 10/22/22 09:35 BP 87/53 10/22/22 09:35 Pulse Ox 94 L 10/22/22 09:35 FiO2 Intake & Output 10/21/22 10/22/22 10/22/22 18:59 06:59 18:59 Intake Total 480 Output Total 100 125 Balance 380 -125 Intake: Oral 480 Output: Urine 50 50 Stool 50 75 Other: Voiding Method Diaper Diaper Diaper Incontinent Incontinent Incontinent - Exam GENERAL DESCRIPTION: An elderly male lying in bed in no distress RESPIRATORY SYSTEM: Unlabored breathing , decreased breath sounds at bases HEART: S1 S2 regular rate and rhythm , ABDOMEN: Soft , no tenderness EXTREMITIES: No edema feet - Labs CBC & Chem 7: 10/21/22 12:39 10/22/22 08:30 Labs: Abnormal Lab Results - Last 24 Hours (Table) 10/21/22 10/21/22 10/21/22 Range/Units 12:39 12:39 16:36 WBC 11.6 H (3.8-10.6) k/uL RBC 3.85 L (4.30-5.90) m/uL Hgb 10.8 L (13.0-17.5) gm/dL Hct 34.5 L (39.0-53.0) % RDW 17.1 H (11.5-15.5) % Plt Count 115 L D (150-450) k/uL Neutrophils # 10.3 H (1.3-7.7) k/uL Lymphocytes # 0.7 L (1.0-4.8) k/uL Sodium 134 L (137-145) mmol/L Carbon Dioxide 20 L (22-30) mmol/L BUN 65 H (9-20) mg/dL Creatinine 4.29 H (0.66-1.25) mg/dL Glucose 126 H (74-99) mg/dL POC Glucose (mg/dL) 154 H (70-110) mg/dL Calcium 7.7 L (8.4-10.2) mg/dL Total Protein 4.0 L (6.3-8.2) g/dL Albumin 1.9 L (3.5-5.0) g/dL 10/21/22 10/22/22 10/22/22 Range/Units 20:18 06:05 08:30 WBC (3.8-10.6) k/uL RBC (4.30-5.90) m/uL Hgb (13.0-17.5) gm/dL Hct (39.0-53.0) % RDW (11.5-15.5) % Plt Count (150-450) k/uL Neutrophils # (1.3-7.7) k/uL Lymphocytes # (1.0-4.8) k/uL Sodium 133 L (137-145) mmol/L Carbon Dioxide 18 L (22-30) mmol/L BUN 71 H (9-20) mg/dL Creatinine 4.33 H (0.66-1.25) mg/dL Glucose 130 H (74-99) mg/dL POC Glucose (mg/dL) 151 H 134 H (70-110) mg/dL Calcium 7.7 L (8.4-10.2) mg/dL Total Protein (6.3-8.2) g/dL Albumin (3.5-5.0) g/dL 10/22/22 Range/Units 11:47 WBC (3.8-10.6) k/uL RBC (4.30-5.90) m/uL Hgb (13.0-17.5) gm/dL Hct (39.0-53.0) % RDW (11.5-15.5) % Plt Count (150-450) k/uL Neutrophils # (1.3-7.7) k/uL Lymphocytes # (1.0-4.8) k/uL Sodium (137-145) mmol/L Carbon Dioxide (22-30) mmol/L BUN (9-20) mg/dL Creatinine (0.66-1.25) mg/dL Glucose (74-99) mg/dL POC Glucose (mg/dL) 159 H (70-110) mg/dL Calcium (8.4-10.2) mg/dL Total Protein (6.3-8.2) g/dL Albumin (3.5-5.0) g/dL Microbiology - Last 24 Hours (Table) 10/18/22 10:40 Urine Culture - Final Urine,Clean Catch Assessment and Plan (1) ESBL (extended spectrum beta-lactamase) producing bacteria infection Current Visit: Yes Status: Acute Code(s): A49.9 - BACTERIAL INFECTION, UNSPECIFIED; Z16.12 - EXTENDED SPECTRUM BETA LACTAMASE (ESBL) RESISTANCE SNOMED Code(s): 692312310 (2) UTI (urinary tract infection) Current Visit: Yes Status: Acute Code(s): N39.0 - URINARY TRACT INFECTION, SITE NOT SPECIFIED SNOMED Code(s): 84877211 Plan: 1patient with a ESBL E. coli bacteremia source is likely urinary in this patient who did have a complicated history with bilateral hydroureteronephrosis and did have a nephrostomy tube on the left side and it shows overall improvement on this CAT scan done this admission however did have persistent hydroureteronephrosis on the right side which is being managed by the urology team and recommending no intervention at this point 2-blood cultures has been repeated to document clearance of bacteremia and are currently pending 3-patient is afebrile and white count is down to 11.6 however did have worsening of his kidney function creatinine 4.33 4patient to continue meropenem 1 g every 12 hours dose has been adjusted to the kidney function Time with Patient: Less than 30
[2022-10-22 16:04] VITALS: BMI 31.9
--- NOTE | 2022-10-22 16:20 | P.PN ---
Subjective No acute overnight, creat still elevated at 4.2 despite left nephrostomy tube exchange. Denies any flank pain, Objective - Vital Signs Vital signs: Vital Signs Temp 97.7 F 10/22/22 13:00 Pulse 81 10/22/22 13:00 Resp 16 10/22/22 13:00 BP 84/57 10/22/22 13:00 Pulse Ox 95 10/22/22 13:00 FiO2 Intake & Output 10/21/22 10/22/22 10/22/22 18:59 06:59 18:59 Intake Total 480 Output Total 100 125 Balance 380 -125 Weight 104 kg Intake: Oral 480 Output: Urine 50 50 Stool 50 75 Other: Voiding Method Diaper Diaper Diaper Incontinent Incontinent Incontinent - Labs CBC & Chem 7: 10/21/22 12:39 10/22/22 08:30 Labs: Abnormal Lab Results - Last 24 Hours (Table) 10/21/22 10/21/22 10/22/22 Range/Units 16:36 20:18 06:05 Sodium (137-145) mmol/L Carbon Dioxide (22-30) mmol/L BUN (9-20) mg/dL Creatinine (0.66-1.25) mg/dL Glucose (74-99) mg/dL POC Glucose (mg/dL) 154 H 151 H 134 H (70-110) mg/dL Calcium (8.4-10.2) mg/dL 10/22/22 10/22/22 Range/Units 08:30 11:47 Sodium 133 L (137-145) mmol/L Carbon Dioxide 18 L (22-30) mmol/L BUN 71 H (9-20) mg/dL Creatinine 4.33 H (0.66-1.25) mg/dL Glucose 130 H (74-99) mg/dL POC Glucose (mg/dL) 159 H (70-110) mg/dL Calcium 7.7 L (8.4-10.2) mg/dL Microbiology - Last 24 Hours (Table) 10/18/22 10:40 Urine Culture - Final Urine,Clean Catch Assessment and Plan Assessment: 81 yo hx of bilateral hydronephrosis, left hydronephrosis been managed with PCN. Having low urine output from PCN on admission, nephrostomy tube exchanged Tuesday, creatinine persistent elevated at 4.2 after nephrostomy tube change -Follow up on nephrology recs, if no onther etiology of patient's acute kidney injury, can consider a right nephrostomy tube placement by interventional radiology
[2022-10-22 16:26] LABS: Glucose,Whole Blood 161 mg/dL (70-110)
[2022-10-22] MEDS: MEROPENEM 1 GM in SODIUM CHLORIDE 0.9% 100 ML IVPB SCH (16:59)
[2022-10-22] MEDS: DEXTROSE 5% IN WATER 1,000 ML with SODIUM BICARB (1 MEQ/ML) 150 ML IV SCH (17:00)
--- NOTE | 2022-10-22 17:21 | P.PN ---
Progress Note - Text Progress Note Date: 10/22/22 Chief Complaint: Decreased urine output and abdominal pain 81-year-old patient who follows with visiting physicians Dr. diaz. Patient is a limited historian. As per the ER physician patient's. [facility] Has a percutaneous nephrostomy tube. Also has a colostomy. Patient is not sure why he is in the ER. But he was apparently sent in for decreased urine output and some abdominal pain. Patient denies abdominal pain. Has decreased output. Denies any fever and chills. Has not walked for about 2 months. No nausea vomiting. Patient was hypotensive in the ER. Given IV fluids. IV ceftriaxone. Concern about sepsis. No fever recorded. Has a sacral decubitus ulcer Admitted with possible sepsis. Source unclear. Decreased urine output. Hypotension. October 18: Reclining in bed. Decreased appetite. We'll have the patient have assisted feeding. Blood cultures pending. October 19: Laying in bed. Not eating. Not hungry. Marinol added. IV meropenem. Blood cultures growing gram-negative bacilli. Sodium bicarbonate drip started for acidosis October 20: Patient slightly decreased urine output to the nephrostomy tube. Today nephrostogram being carried out by urology. May need to change to 2. Maintenance IV meropenem. IV bicarbonate drip. Decreased appetite October 21: Patient underwent nephrostogram yesterday in the nephrostomy tube was changed.. Patient's creatinine seems to have platelet off. Patient did eat some. Tired. October 22: Patient not eating. Tired and lethargic. Later this afternoon patient's son came to the hospital. Told the nurse he wanted hospice. They had been looking into that prior to admission. Appropriate. Hospice has been consulted. Patient even spit out his medications. Stop antibiotics. Active Medications Acetaminophen (Acetaminophen Tab 325 Mg Tab) 650 mg PO Q6HR PRN PRN Reason: Mild Pain or Fever > 100.5 Last Admin: 10/21/22 21:55 Dose: 650 mg Allopurinol (Allopurinol 100 Mg Tab) 100 mg PO DAILY [facility] Last Admin: 10/22/22 13:05 Dose: Not Given Atorvastatin Calcium (Atorvastatin 20 Mg Tab) 20 mg PO DAILY [facility] Last Admin: 10/22/22 13:06 Dose: Not Given Cyanocobalamin (Cyanocobalamin 500 Mcg Tab) 1,000 mcg PO DAILY [facility] Last Admin: 10/22/22 13:06 Dose: Not Given Dronabinol (Dronabinol 2.5 Mg Cap) 2.5 mg PO AC-BID [facility] Last Admin: 10/22/22 17:01 Dose: Not Given Meropenem 1 gm/ Sodium (Chloride) 100 mls @ 33.333 mls/hr IVPB Q12HR [facility] Last Admin: 10/22/22 16:59 Dose: Not Given Sodium Bicarbonate 150 ml/ (Dextrose/Water) 1,150 mls @ 80 mls/hr IV .[id number] [facility] Last Admin: 10/22/22 17:00 Dose: 80 mls/hr Lactobacillus Acidoph/Bulgaricus (Lactobacillus Acidoph & Bulgar 1 Each Packet) 1 each PO DAILY [facility] Last Admin: 10/22/22 13:03 Dose: Not Given Magnesium Oxide (Magnesium Oxide 400 Mg Tab) 400 mg PO BID [facility] Last Admin: 10/22/22 13:06 Dose: Not Given Midodrine (Midodrine 5 Mg Tab) 10 mg PO AC-TID [facility] Last Admin: 10/22/22 17:00 Dose: 10 mg Multi-Ingred Cream/Lotion/Oil/Oint (Hydrophilic Cream 180 Gm Tube) 1 applic TOPICAL DAILY [facility]; Protocol Last Admin: 10/21/22 09:03 Dose: 1 applic Multivit/Ca Carb/B Cmplx/FA/Prenat (Folic Acid-Vit B Complex-Vit C 1 Cap) 1 each PO DAILY [facility] Last Admin: 10/22/22 13:06 Dose: Not Given Naloxone HCl (Naloxone 0.4 Mg/Ml 1 Ml Vial) 0.2 mg IV Q2M PRN PRN Reason: Opioid Reversal Pantoprazole Sodium (Pantoprazole 40 Mg Tablet) 40 mg PO AC-BRKFST [facility] Last Admin: 10/22/22 13:05 Dose: Not Given Physical examination: VITAL SIGNS: 97.7, 81, 16, 84/57, 95% room air GENERAL: Reclining, tired EYES: Pupils equal. Conjunctiva normal. HEENT: External appearance of nose and ears normal, oral cavity grossly normal. NECK: JVD not raised; masses not palpable. HEART: First and second heart sounds are normal; no edema. LUNGS:[ Respiratory rate normal; decreased breath sounds. ABDOMEN: Soft, nontender, liver spleen not palpable, no masses palpable. Colostomy bag. Left-sided nephrostomy tube PSYCH: Answering simple questions MUSCULOSKELETAL:No Clubbing/cyanosis;muscles-grossly intact. OA INVESTIGATIONS, reviewed in the clinical context: October 22: Potassium 4.1 BUN 71 creatinine 4.33 October 21: White count 11.6 hemoglobin 10.8 platelets 115 potassium 4.1 BUN 65 creatinine 4.29. Albumin 1.9 Blood culture [October 17] E. coli October 20: Potassium 4.3 BUN 63 creatinine 4.2 to October 19: Potassium 4.3 BUN 58 creatinine 3.6 to bicarbonate 13 UA: Protein 3+ leukoesterase WBC October 18: Potassium 4.3 BUN 50 creatinine 2.9 to magnesium 0.8 WBC 25.4 hemoglobin 11.6 platelets 366 sodium 134 potassium 4.8 BUN 45 creatinine 2.84 Lactic acid 4.4 Magnesium 0.7 albumin 2.3 EKG tracing personally reviewed by me-possible multifocal atrial tachycardia with PVC Chest x-ray film personally reviewed by me-unremarkable CT abdomen and pelvis without contrast: Moderate to severe left-sided hydronephrosis improved to prior exam. Last status post continues nephrostomy tube is.. Right kidney: Mild to moderate right-sided height 2. Hydronephrosis. Unchanged. Assessment and plan: -sepsis likely secondary to UTI/pyelonephritis. Blood cultures positive for E. coli IV meropenem. -left nephrostomy tubes, with moderate to severe left-sided hydronephrosis. Decreased urine output.: Worsening Nephrostomy tube was replaced on October 20. -Acute metabolic acidosis: improving IV bicarbonate drip continues -Significant cognitive impairment -Chronic medical debility, patient is nonambulatory -Hypotension possibly combination off sepsis and poor oral intake Stop Zestril. Stop Lasix. IV fluids -Hyperlipidemia Lipitor -Significant hypotension Midodrine -GERD PPI -Acute kidney injury with no prior labs available for comparison. Possibly ATN from hypotension. Element of obstructive uropathy. With bilateral hydronephrosis. Decreased urine output. : Slow to respond Follow with nephrology -Lactic acidosis multifactorial -Metabolic acidosis probably from kidney disease -Sacral decub's wound. Stage I pressure ulcer Wound care -DO NOT RESUSCITATE, for hospice Son came in this afternoon and works hospice. Appropriate. Will DC medications. Patient's. Spitting out the same. Keep IV fluids. Hospice consulted. Probably go home tomorrow with hospice.
[2022-10-22] MEDS: HYDROPHILIC CREAM 180 GM TUBE TOPICAL SCH (20:29)
[2022-10-22 20:34] LABS: Glucose,Whole Blood 152 mg/dL (70-110)
[2022-10-23] MEDS: DEXTROSE 5% IN WATER 1,000 ML with SODIUM BICARB (1 MEQ/ML) 150 ML IV SCH ×2 (00:02→13:24)
[2022-10-23 05:54] LABS: Glucose,Whole Blood 144 mg/dL (70-110)
[2022-10-23] MEDS: droNABinol 2.5 MG CAP PO SCH (06:37)
[2022-10-23] MEDS: ACETAMINOPHEN TAB 325 MG TAB PO PRN (06:47)
--- NOTE | 2022-10-23 09:34 | P.PN ---
Subjective Patient is seen in follow-up for acute kidney injury. Creatinine 4.3 yesterday. Resting in bed. Oral intake is poor. Patient is not a very reliable historian. Has been refusing all medications. Also doesn't have IV access. Vital signs are stable. Blood pressure low. General: No acute distress. HEENT: Head exam is unremarkable. LUNGS: No audible rhonchi or wheezes. HEART: Rate and Rhythm are regular. ABDOMEN: Colostomy noted. Left nephrostomy tube noted. EXTREMITITES: 2+ edema. Objective - Vital Signs Vital signs: Vital Signs Temp 97.4 F L 10/23/22 08:50 Pulse 86 10/23/22 08:50 Resp 16 10/23/22 08:50 BP 86/56 10/23/22 08:50 Pulse Ox 93 L 10/23/22 08:52 FiO2 21 10/23/22 08:52 Intake & Output 10/22/22 10/23/22 10/23/22 18:59 06:59 18:59 Intake Total 400 Balance 400 Weight 104 kg Intake: Intake, IV Titration 400 Amount Dextrose 5% in Water 1, 400 000 ml @ 80 mls/hr IV . [id number] LISHA with Sodium Bicarb (1 Meq/ml) 150 ml Rx#:[id number] Other: Voiding Method Diaper Diaper Diaper Incontinent Incontinent Incontinent - Labs CBC & Chem 7: 10/21/22 12:39 10/22/22 08:30 Labs: Abnormal Lab Results - Last 24 Hours (Table) 10/22/22 10/22/22 10/22/22 Range/Units 08:30 11:47 16:25 Sodium 133 L (137-145) mmol/L Carbon Dioxide 18 L (22-30) mmol/L BUN 71 H (9-20) mg/dL Creatinine 4.33 H (0.66-1.25) mg/dL Glucose 130 H (74-99) mg/dL POC Glucose (mg/dL) 159 H 161 H (70-110) mg/dL Calcium 7.7 L (8.4-10.2) mg/dL 10/22/22 10/23/22 Range/Units 20:32 05:53 Sodium (137-145) mmol/L Carbon Dioxide (22-30) mmol/L BUN (9-20) mg/dL Creatinine (0.66-1.25) mg/dL Glucose (74-99) mg/dL POC Glucose (mg/dL) 152 H 144 H (70-110) mg/dL Calcium (8.4-10.2) mg/dL Assessment and Plan Plan: Assessment: 1. Acute kidney injury secondary to ATN secondary to hypotension and obstructive uropathy. Creatinine 2.84 on admission and up to 4.3 yesterday. Unknown baseline renal function. 2. Metabolic acidosis secondary to acute kidney injury. 3. Obstructive uropathy with left nephrostomy tube changed 10/20/2022. Urology following. 4. Volume overload. 5. Hypotension maintained on midodrine. Cortisol level not low. Plan: Currently not receiving any medications as he is refusing and has no IV access. Hospice meeting today.
--- NOTE | 2022-10-23 09:52 | P.PN ---
Subjective Progress Note Date: 10/23/22 Principal diagnosis: ESBL E. coli bacteremia Patient is a 81-year-old male with multiple comorbidities was brought into the ER for evaluation of decreased urine output and abdominal pain patient did have a history of bilateral hydronephrosis and did have a left-sided ne phrostomy tube placement, patient noticed to have a positive blood culture with ESBL E. coli that has prompted this infectious disease consultation On today's evaluation had that is 10/23/2022, the patient remains to be afebrile, the patient is breathing comfortably on room air, the patient denies c hest pain or shortness of breath or cough patient denies any worsening right- sided abdominal pain , no vomiting or diarrhea Objective - Vital Signs Vital signs: Vital Signs Temp 97.5 F L 10/23/22 03:29 Pulse 86 10/23/22 03:29 Resp 16 10/23/22 03:29 BP 93/52 10/23/22 03:29 Pulse Ox 93 L 10/23/22 03:29 FiO2 Intake & Output 10/22/22 10/23/22 10/23/22 18:59 06:59 18:59 Intake Total 400 Balance 400 Weight 104 kg Intake: Intake, IV Titration 400 Amount Dextrose 5% in Water 1, 400 000 ml @ 80 mls/hr IV . [id number] LISHA with Sodium Bicarb (1 Meq/ml) 150 ml Rx#:[id number] Other: Voiding Method Diaper Diaper Incontinent Incontinent - Exam GENERAL DESCRIPTION: An elderly male lying in bed in no distress RESPIRATORY SYSTEM: Unlabored breathing , decreased breath sounds at bases HEART: S1 S2 regular rate and rhythm , ABDOMEN: Soft , no tenderness EXTREMITIES: No edema feet - Labs CBC & Chem 7: 10/21/22 12:39 10/22/22 08:30 Labs: Abnormal Lab Results - Last 24 Hours (Table) 10/22/22 10/22/22 10/22/22 Range/Units 08:30 11:47 16:25 Sodium 133 L (137-145) mmol/L Carbon Dioxide 18 L (22-30) mmol/L BUN 71 H (9-20) mg/dL Creatinine 4.33 H (0.66-1.25) mg/dL Glucose 130 H (74-99) mg/dL POC Glucose (mg/dL) 159 H 161 H (70-110) mg/dL Calcium 7.7 L (8.4-10.2) mg/dL 10/22/22 10/23/22 Range/Units 20:32 05:53 Sodium (137-145) mmol/L Carbon Dioxide (22-30) mmol/L BUN (9-20) mg/dL Creatinine (0.66-1.25) mg/dL Glucose (74-99) mg/dL POC Glucose (mg/dL) 152 H 144 H (70-110) mg/dL Calcium (8.4-10.2) mg/dL Assessment and Plan (1) ESBL (extended spectrum beta-lactamase) producing bacteria infection Current Visit: Yes Status: Acute Code(s): A49.9 - BACTERIAL INFECTION, UNSPECIFIED; Z16.12 - EXTENDED SPECTRUM BETA LACTAMASE (ESBL) RESISTANCE SNOMED Code(s): 290071713 (2) UTI (urinary tract infection) Current Visit: Yes Status: Acute Code(s): N39.0 - URINARY TRACT INFECTION, SITE NOT SPECIFIED SNOMED Code(s): 09418868 Plan: 1patient with a ESBL E. coli bacteremia source is likely urinary in this patient who did have a complicated history with bilateral hydroureteronephrosis and did have a nephrostomy tube on the left side and it shows overall improvement on this CAT scan done this admission however did have persistent hydroureteronephrosis on the right side which is being managed by the urology team and recommending no intervention at this point 2-blood cultures has been repeated to document clearance of bacteremia and are negative so far 3-patient is afebrile however the patient has been switched to hospice which is appropriate for him meropenem has been discontinued infectious disease will sign off Time with Patient: Less than 30
[2022-10-23 11:57] LABS: Glucose,Whole Blood 141 mg/dL (70-110)
--- NOTE | 2022-10-23 13:48 | P.PN ---
Progress Note - Text Progress Note Date: 10/23/22 Chief Complaint: Decreased urine output and abdominal pain 81-year-old patient who follows with visiting physicians Dr. diaz. Patient is a limited historian. As per the ER physician patient's. [facility] Has a percutaneous nephrostomy tube. Also has a colostomy. Patient is not sure why he is in the ER. But he was apparently sent in for decreased urine output and some abdominal pain. Patient denies abdominal pain. Has decreased output. Denies any fever and chills. Has not walked for about 2 months. No nausea vomiting. Patient was hypotensive in the ER. Given IV fluids. IV ceftriaxone. Concern about sepsis. No fever recorded. Has a sacral decubitus ulcer Admitted with possible sepsis. Source unclear. Decreased urine output. Hypotension. October 18: Reclining in bed. Decreased appetite. We'll have the patient have assisted feeding. Blood cultures pending. October 19: Laying in bed. Not eating. Not hungry. Marinol added. IV meropenem. Blood cultures growing gram-negative bacilli. Sodium bicarbonate drip started for acidosis October 20: Patient slightly decreased urine output to the nephrostomy tube. Today nephrostogram being carried out by urology. May need to change to 2. Maintenance IV meropenem. IV bicarbonate drip. Decreased appetite October 21: Patient underwent nephrostogram yesterday in the nephrostomy tube was changed.. Patient's creatinine seems to have platelet off. Patient did eat some. Tired. October 22: Patient not eating. Tired and lethargic. Later this afternoon patient's son came to the hospital. Told the nurse he wanted hospice. They had been looking into that prior to admission. Appropriate. Hospice has been consulted. Patient even spit out his medications. Stop antibiotics. October 23: Patient been refusing medications. Spitting it out. Not eating. Son at the bedside. Discussed with him. Patient has not expressed her son before that he does not want to live longer. Discussed with son. He'll take the patient home with hospice. Dialysis was discussed. And for discharge home with hospice tomorrow. Active Medications Acetaminophen (Acetaminophen Tab 325 Mg Tab) 650 mg PO Q6HR PRN PRN Reason: Mild Pain or Fever > 100.5 Last Admin: 10/23/22 06:47 Dose: 650 mg Dronabinol (Dronabinol 2.5 Mg Cap) 2.5 mg PO AC-BID [facility] Last Admin: 10/23/22 06:37 Dose: Not Given Sodium Bicarbonate 150 ml/ (Dextrose/Water) 1,150 mls @ 80 mls/hr IV .[id number] [facility] Last Admin: 10/23/22 13:24 Dose: Not Given Multi-Ingred Cream/Lotion/Oil/Oint (Hydrophilic Cream 180 Gm Tube) 1 applic TOPICAL DAILY [facility]; Protocol Last Admin: 10/22/22 20:29 Dose: Not Given Naloxone HCl (Naloxone 0.4 Mg/Ml 1 Ml Vial) 0.2 mg IV Q2M PRN PRN Reason: Opioid Reversal Physical examination: VITAL SIGNS: 97.6, 80, 16, 97/62, 93% room air GENERAL: Reclining, tired EYES: Pupils equal. Conjunctiva normal. HEENT: External appearance of nose and ears normal, oral cavity grossly normal. NECK: JVD not raised; masses not palpable. HEART: First and second heart sounds are normal; no edema. LUNGS:[ Respiratory rate normal; decreased breath sounds. ABDOMEN: Soft, nontender, liver spleen not palpable, no masses palpable. Colostomy bag. Left-sided nephrostomy tube PSYCH: Answering simple questions MUSCULOSKELETAL:No Clubbing/cyanosis;muscles-grossly intact. OA INVESTIGATIONS, reviewed in the clinical context: October 22: Potassium 4.1 BUN 71 creatinine 4.33 October 21: White count 11.6 hemoglobin 10.8 platelets 115 potassium 4.1 BUN 65 creatinine 4.29. Albumin 1.9 Blood culture [October 17] E. coli October 20: Potassium 4.3 BUN 63 creatinine 4.2 to October 19: Potassium 4.3 BUN 58 creatinine 3.6 to bicarbonate 13 UA: Protein 3+ leukoesterase WBC October 18: Potassium 4.3 BUN 50 creatinine 2.9 to magnesium 0.8 WBC 25.4 hemoglobin 11.6 platelets 366 sodium 134 potassium 4.8 BUN 45 creatinine 2.84 Lactic acid 4.4 Magnesium 0.7 albumin 2.3 EKG tracing personally reviewed by me-possible multifocal atrial tachycardia with PVC Chest x-ray film personally reviewed by me-unremarkable CT abdomen and pelvis without contrast: Moderate to severe left-sided hydronephrosis improved to prior exam. Last status post continues nephrostomy tube is.. Right kidney: Mild to moderate right-sided height 2. Hydronephrosis. Unchanged. Assessment and plan: -sepsis likely secondary to UTI/pyelonephritis. Blood cultures positive for E. coli IV meropenem. -left nephrostomy tubes, with moderate to severe left-sided hydronephrosis. Decreased urine output.: Worsening Nephrostomy tube was replaced on October 20. -Acute metabolic acidosis: improving IV bicarbonate drip continues -Significant cognitive impairment -Chronic medical debility, patient is nonambulatory -Hypotension possibly combination off sepsis and poor oral intake Stop Zestril. Stop Lasix. IV fluids -Hyperlipidemia Lipitor -Significant hypotension Midodrine -GERD PPI -Acute kidney injury with no prior labs available for comparison. Possibly ATN from hypotension. Element of obstructive uropathy. With bilateral hydronephrosis. Decreased urine output. : Slow to respond Follow with nephrology -Lactic acidosis multifactorial -Metabolic acidosis probably from kidney disease -Sacral decub's wound. Stage I pressure ulcer Wound care -DO NOT RESUSCITATE, for hospice Plan for discharge to home with hospice. Patient has been refusing medications. Refusing food. Advance care planning: At the bedside patient's end-of-life care was discussed. Dialysis was discussed. Per patient wishes son has decided to proceed with making the patient home tomorrow with hospice. Hospice company was contacted. Questions were answered. Comfort feeding was discussed. Time spent about 25 minutes
[2022-10-23] MEDS: HYDROPHILIC CREAM 180 GM TUBE TOPICAL SCH (14:33)
[2022-10-23 16:48] LABS: Glucose,Whole Blood 115 mg/dL (70-110)
[2022-10-23 19:52] LABS: Glucose,Whole Blood 127 mg/dL (70-110)
[2022-10-24 05:45] LABS: Glucose,Whole Blood 128 mg/dL (70-110)
[2022-10-24 08:42] VITALS: BP 89/59; PULSE 71; RESP 17; TEMP 97.4
[2022-10-24] MEDS: HYDROPHILIC CREAM 180 GM TUBE TOPICAL SCH (09:59)
--- NOTE | 2022-10-24 10:12 | P.PN ---
Subjective Patient is seen in follow-up for acute kidney injury. Creatinine 4.3 dated 10/22/2022. Resting in bed. Oral intake is poor. Quite lethargic. Vital signs are stable. Blood pressure low. General: No acute distress. Lethargic. HEENT: Head exam is unremarkable. LUNGS: No audible rhonchi or wheezes. HEART: Rate and Rhythm are regular. ABDOMEN: Colostomy noted. Left nephrostomy tube noted. EXTREMITITES: 2+ edema. Objective - Vital Signs Vital signs: Vital Signs Temp 97.4 F L 10/24/22 07:50 Pulse 71 10/24/22 07:50 Resp 17 10/24/22 07:50 BP 89/59 10/24/22 07:50 Pulse Ox 92 L 10/24/22 07:50 FiO2 21 10/23/22 08:52 Intake & Output 10/23/22 10/24/22 10/24/22 18:59 06:59 18:59 Intake Total 0 250 Output Total 100 Balance 0 150 Intake: Intake, IV Titration 0 Amount Dextrose 5% in Water 1, 0 000 ml @ 80 mls/hr IV . [id number] LISHA with Sodium Bicarb (1 Meq/ml) 150 ml Rx#:[id number] Oral 0 250 Output: Urine 100 Other: Voiding Method Diaper Diaper Diaper Incontinent Incontinent Incontinent # Bowel Movements 0 - Labs CBC & Chem 7: 10/21/22 12:39 10/22/22 08:30 Labs: Abnormal Lab Results - Last 24 Hours (Table) 10/23/22 10/23/22 10/23/22 Range/Units 11:55 16:44 19:50 POC Glucose (mg/dL) 141 H 115 H 127 H (70-110) mg/dL 10/24/22 Range/Units 05:43 POC Glucose (mg/dL) 128 H (70-110) mg/dL Microbiology - Last 24 Hours (Table) 10/22/22 08:30 Blood Culture - Preliminary Blood 10/20/22 15:32 Blood Culture - Preliminary Blood 10/17/22 11:48 Blood Culture - Final Blood Assessment and Plan Plan: Assessment: 1. Acute kidney injury secondary to ATN secondary to hypotension and obstructive uropathy. Creatinine 2.84 on admission and up to 4.3 dated 10/22/2022. Unknown baseline renal function. 2. Metabolic acidosis secondary to acute kidney injury. 3. Obstructive uropathy with left nephrostomy tube changed 10/20/2022. Urology following. 4. Volume overload. 5. Hypotension maintained on midodrine. Cortisol level not low. Plan: Plan for home hospice today. I will sign off.
[2022-10-24 11:47] LABS: Glucose,Whole Blood 122 mg/dL (70-110)
--- NOTE | 2022-10-24 14:24 | P.DS ---
Providers Date of admission: 10/17/22 14:33 Expected date of discharge: 10/24/22 Attending physician: Orlando Cevallos Consults: 10/17/22 14:32 Consult Physician Routine Consulting Provider: Genie Cohen Consult Reason/Comments: Sepsis Do you want consulting provider notified?: Already Contacted 10/17/22 14:40 Consult Physician Routine Consulting Provider: Laura Grossman Consult Reason/Comments: CLAUDINE Do you want consulting provider notified?: Yes 10/18/22 00:47 Consult Physician Routine Consulting Provider: William Castro Consult Reason/Comments: reduced left nephrostomy output Do you want consulting provider notified?: Yes 10/19/22 10:51 Consult Physician Routine Consulting Provider: Jennifer Finch Consult Reason/Comments: Bacteremia, ESBL Do you want consulting provider notified?: Yes Primary care physician: Ranjit Aparicio [facility] Course: Chief Complaint: Decreased urine output and abdominal pain 81-year-old patient who follows with visiting physicians Dr. aparicio. Patient is a limited historian. As per the ER physician patient's. [facility] Has a percutaneous nephrostomy tube. Also has a colostomy. Patient is not sure why he is in the ER. But he was apparently sent in for decreased urine output and some abdominal pain. Patient denies abdominal pain. Has decreased output. Denies any fever and chills. Has not walked for about 2 months. No nausea vomiting. Patient was hypotensive in the ER. Given IV fluids. IV ceftriaxone. Concern about sepsis. No fever recorded. Has a sacral decubitus ulcer Admitted with possible sepsis. Source unclear. Decreased urine output. Hypotension. October 18: Reclining in bed. Decreased appetite. We'll have the patient have assisted feeding. Blood cultures pending. October 19: Laying in bed. Not eating. Not hungry. Marinol added. IV meropenem. Blood cultures growing gram-negative bacilli. Sodium bicarbonate drip started for acidosis October 20: Patient slightly decreased urine output to the nephrostomy tube. Today nephrostogram being carried out by urology. May need to change to 2. Maintenance IV meropenem. IV bicarbonate drip. Decreased appetite October 21: Patient underwent nephrostogram yesterday in the nephrostomy tube was changed.. Patient's creatinine seems to have platelet off. Patient did eat some. Tired. October 22: Patient not eating. Tired and lethargic. Later this afternoon patient's son came to the hospital. Told the nurse he wanted hospice. They had been looking into that prior to admission. Appropriate. Hospice has been co nsulted. Patient even spit out his medications. Stop antibiotics. October 23: Patient been refusing medications. Spitting it out. Not eating. Son at the bedside. Discussed with him. Patient has not expressed her son before that he does not want to live longer. Discussed with son. He'll take the patient home with hospice. Dialysis was discussed. And for discharge home with hospice tomorrow. October 24: Laying in bed. Not in distress. Going home with hospice. Not taking medications. Not eating. Does answer simple questions Physical examination: VITAL SIGNS: 97.4, 71, 17, 89/59, 92% room air GENERAL: Reclining, tired EYES: Pupils equal. Conjunctiva normal. HEENT: External appearance of nose and ears normal, oral cavity grossly normal. NECK: JVD not raised; masses not palpable. HEART: First and second heart sounds are normal; no edema. LUNGS:[ Respiratory rate normal; decreased breath sounds. ABDOMEN: Soft, nontender, liver spleen not palpable, no masses palpable. Colostomy bag. Left-sided nephrostomy tube PSYCH: Answering simple questions MUSCULOSKELETAL: OA INVESTIGATIONS, reviewed in the clinical context: October 22: Potassium 4.1 BUN 71 creatinine 4.33 October 21: White count 11.6 hemoglobin 10.8 platelets 115 potassium 4.1 BUN 65 creatinine 4.29. Albumin 1.9 Blood culture [October 17] E. coli October 20: Potassium 4.3 BUN 63 creatinine 4.2 to October 19: Potassium 4.3 BUN 58 creatinine 3.6 to bicarbonate 13 UA: Protein 3+ leukoesterase WBC October 18: Potassium 4.3 BUN 50 creatinine 2.9 to magnesium 0.8 WBC 25.4 hemoglobin 11.6 platelets 366 sodium 134 potassium 4.8 BUN 45 creatinine 2.84 Lactic acid 4.4 Magnesium 0.7 albumin 2.3 EKG tracing personally reviewed by me-possible multifocal atrial tachycardia with PVC Chest x-ray film personally reviewed by me-unremarkable CT abdomen and pelvis without contrast: Moderate to severe left-sided hydronephrosis improved to prior exam. Last status post continues nephrostomy tube is.. Right kidney: Mild to moderate right-sided height 2. Hydronephrosis. Unchanged. Assessment and plan: -sepsis likely secondary to UTI/pyelonephritis. Blood cultures positive for E. coli Received IV meropenem. -left nephrostomy tubes, with moderate to severe left-sided hydronephrosis. Decreased urine output.: Worsening Nephrostomy tube was replaced on October 20. -Acute metabolic acidosis: improving Received IV bicarbonate drip -Significant cognitive impairment -Chronic medical debility, patient is nonambulatory -Hypotension possibly combination off sepsis and poor oral intake Stop Zestril. Stop Lasix. IV fluids -Hyperlipidemia Lipitor -Significant hypotension Midodrine -GERD PPI -Acute kidney injury with no prior labs available for comparison. Possibly ATN from hypotension. Element of obstructive uropathy. With bilateral hydronephrosis. Decreased urine output. : Slow to respond Follow with nephrology -Lactic acidosis multifactorial -Metabolic acidosis probably from kidney disease -Sacral decub's wound. Stage I pressure ulcer Wound care -DO NOT RESUSCITATE, for hospice Disposition: Home with hospice Plan - Discharge Summary Discharge Rx Participant: No New Discharge Prescriptions: New Acetaminophen Tab [Tylenol] 650 mg PO Q6HR PRN tab PRN Reason: Mild Pain Or Fever > 100.5 Discontinued allopurinoL [Zyloprim] 100 mg PO DAILY Cyanocobalamin (Vitamin B-12) [Vitamin B-12] 1,000 mcg PO DAILY Nitrofurantoin Monohyd/M-Cryst [Macrobid] 100 mg PO Q12HR Ferrous Sulfate [Feosol] 325 mg PO DAILY L.acidoph,Paracasei, B.lactis [Probiotic] 1 cap PO DAILY lisinopriL [Zestril] 5 mg PO DAILY Omeprazole [PriLOSEC] 20 mg PO DAILY Furosemide [Lasix] 20 mg PO DAILY Atorvastatin [Lipitor] 20 mg PO DAILY Vit B Comp No.3/Folic/C/Biotin [Melody-Katerina Rx Tablet] 1 tab PO DAILY Discharge Medication List Acetaminophen Tab [Tylenol] 650 mg PO Q6HR PRN tab 10/24/22 [Rx] Follow up Appointment(s)/Referral(s): Ranjit Aparicio MD [Primary Care Provider] - 1-2 days Discharge Disposition: HOME WITH HOSPICE
== END 2022-10-24 13:02 | disposition hospice, home (50) | DRG 871 ==
LOC: EC 11:41 → 3SCARD 14:33
PROVIDERS: ADMIT Hospitalist; ATTEND Hospitalist
PROC: 0T25X0Z Change Drainage Device in Kidney, External Approach (ICD-10-PCS; principal; 2022-10-20 10:10)
DX: A41.51 Sepsis due to Escherichia coli [E. coli] (principal); N17.0 Acute kidney failure with tubular necrosis; N12 Tubulo-interstitial nephritis, not specified as acute or chronic; E87.1 Hypo-osmolality and hyponatremia; N13.6 Pyonephrosis; Z16.12 Extended spectrum beta lactamase (ESBL) resistance; T83.193A Other mechanical complication of other urinary stent, initial encounter; E11.622 Type 2 diabetes mellitus with other skin ulcer; E11.22 Type 2 diabetes mellitus with diabetic chronic kidney disease; E78.5 Hyperlipidemia, unspecified; E83.42 Hypomagnesemia; E86.1 Hypovolemia; I12.9 Hypertensive chronic kidney disease with stage 1 through stage 4 chronic kidney disease, or unspecified chronic kidney disease; I25.2 Old myocardial infarction; Z86.74 Personal history of sudden cardiac arrest; K21.9 Gastro-esophageal reflux disease without esophagitis; L89.151 Pressure ulcer of sacral region, stage 1; L89.321 Pressure ulcer of left buttock, stage 1; L89.311 Pressure ulcer of right buttock, stage 1; L98.499 Non-pressure chronic ulcer of skin of other sites with unspecified severity; M06.9 Rheumatoid arthritis, unspecified; N18.9 Chronic kidney disease, unspecified; Z66 Do not resuscitate; Z51.5 Encounter for palliative care; R32 Unspecified urinary incontinence; Z79.899 Other long term (current) drug therapy; Z85.038 Personal history of other malignant neoplasm of large intestine; Z87.442 Personal history of urinary calculi; Z90.49 Acquired absence of other specified parts of digestive tract; Z93.2 Ileostomy status; Z93.6 Other artificial openings of urinary tract status; R53.81 Other malaise
CPT/HCPCS: 36410; 36415; 50435; 71045; 74176; 76937; 80048; 80053; 81001; 82533; 83605; 83735; 85025; 85610; 85730; 86850; 86900; 86901; 87040; 87077; 87086; 87186; 93005; 94760; 96361; 96365; 96366; 96367; 99291